=== PATIENT | female | born 1955 | race Caucasian/White ===

== ENCOUNTER 2017-07-27 07:27 | Day surgery (SDC) | payer BC ==
[2017-07-24 15:24] VITALS: BMI 33.3
[~2017-07-27 07:27] MED LIST: LACTATED RINGERS 1,000 ML IV SCH; LIDOCAINE 1% 20 ML VIAL (10MG/ML) FOR IV START INTRADERMA PRN; MIDAZOLAM 2 MG/2 ML VIAL IV PRN
[2017-07-27 08:25] VITALS: RESP 16; TEMP 98.7
[2017-07-27] MEDS ORDERED: PROPOFOL 10 MG/ML 20 ML VIAL IV ONE (09:21)
--- NOTE | 2017-07-27 09:41 | P.PCN ---
Date of Procedure: 07/27/17 Procedure(s) Performed: BRIEF HISTORY: Patient is a 62-year-old pleasant white female, scheduled for an elective colonoscopy as a part of screening for colorectal neoplasia. She does have family history of colon cancer diagnosed in her brother at age 70. PROCEDURE PERFORMED: Colonoscopy with snare polypectomy. PREOPERATIVE DIAGNOSIS: Screening for colon cancer/family history of colon cancer. IV sedation per Anesthesia. PROCEDURE: After informed consent was obtained, the patient, was brought into the endoscopy unit. IV sedation was administered by Anesthesia under continuous monitoring. Digital rectal examination was normal. Initially the Olympus CF- 160 flexible video colonoscope was then inserted in the rectum, gradually advanced into the cecum without any difficulty. Careful examination was performed as the scope was gradually being withdrawn. Ileocecal valve and the appendiceal orifice were visualized and appeared normal. Prep was excellent. In the base of the cecum there was a 5 mm sessile polyp removed by snare polypectomy. Mucosa of the cecum, ascending colon, transverse colon, was normal. In the descending colon there was another 5 mm sessile polyp removed by snare polypectomy. The rest of the descending colon, sigmoid colon, and rectum appeared normal. Retroflexion was performed in the rectum and no lesions were seen. The patient tolerated the procedure well. IMPRESSION: 5 m sessile cecal polyp status post polypectomy 5 mm sessile descending colon polyp status post polypectomy RECOMMENDATIONS: Findings of this examination were discussed with the patient as well as a family. She was advised to follow with the biopsy results. If the biopsy shows a tubular adenoma she can have a repeat colonoscopy in 5 years.
[2017-07-27 10:04] VITALS: BP 99/52; PULSE 64
== END 2017-07-27 10:35 | disposition home or self-care (01) ==
LOC: ORWHC2ENDO 07:27
PROVIDERS: ATTEND Internal Medicine Gastroenterology
DX: Z12.11 Encounter for screening for malignant neoplasm of colon (principal); D12.0 Benign neoplasm of cecum; D12.4 Benign neoplasm of descending colon; Z80.0 Family history of malignant neoplasm of digestive organs; I10 Essential (primary) hypertension; E78.5 Hyperlipidemia, unspecified; K21.9 Gastro-esophageal reflux disease without esophagitis; Z79.899 Other long term (current) drug therapy
CPT/HCPCS: 88305; 45385; J2704

== ENCOUNTER 2017-08-28 08:07 | Emergency (ER) | payer BC, OTHER ==
[2017-08-28 08:15] VITALS: BP 91/54; PULSE 79; RESP 18; TEMP 97
--- NOTE | 2017-08-28 08:45 | ED ---
General Adult HPI - General Chief complaint: Skin/Abscess/Foreign Body Stated complaint: [facility]-Ear plug in ear Time Seen by Provider: 08/28/17 08:34 Source: patient, RN notes reviewed Mode of arrival: ambulatory Limitations: no limitations - History of Present Illness Initial comments: Patient 62-year-old female presented to the emergency room today with chief complaint foreign body to left ear. She does have ear plugs that she uses for work. She went to take the ear plugged out and part remained in the ear canal. Patient was unable to remove it. She denies any other complaints or symptoms. - Related Data Home Medications Medication Instructions Recorded Confirmed Atorvastatin [Lipitor] 20 mg PO HS 07/24/17 08/28/17 Diclofenac 0.1% Ophth Soln 1 drops LEFT EYE HS PRN 07/24/17 08/28/17 [Voltaren 0.1% Ophth Soln] FLUoxetine HCL [PROzac] 20 mg PO HS 07/24/17 08/28/17 Gabapentin [Neurontin] 300 mg PO TID 07/24/17 08/28/17 Lisinopril [Zestril] 10 mg PO DAILY 07/24/17 08/28/17 Multivitamins, Thera [Multivitamin 1 tab PO DAILY 07/24/17 08/28/17 (formulary)] Ranitidine HCl 150 mg PO BID 07/24/17 08/28/17 Ferrous Sulfate [Feosol] 325 mg PO DAILY 08/28/17 08/28/17 Allergies Allergy/AdvReac Type Severity Reaction Status Date / Time No Known Allergies Allergy Verified 08/28/17 08:36 Review of Systems ROS Statement: Those systems with pertinent positive or pertinent negative responses have been documented in the HPI. ROS Other: All systems not noted in ROS Statement are negative. Past Medical History Past Medical History: Eye Disorder, GERD/Reflux, Hyperlipidemia, Hypertension Additional Past Medical History / Comment(s): [place] GLAUCOMA History of Any Multi-Drug Resistant Organisms: None Reported Past Surgical History: Hysterectomy Additional Past Surgical History / Comment(s): COLONOSCOPY Past Anesthesia/Blood Transfusion Reactions: No Reported Reaction Past Psychological History: Anxiety, Depression Smoking Status: Never smoker Past Alcohol Use History: None Reported Past Drug Use History: None Reported - Past Family History Mother Family Medical History: Cancer Father Family Medical History: Cancer Brother(s) Family Medical History: Cancer Additional Family Medical History / Comment(s): BROTHER #1-COLON. 2 BROTHERS WITH SKIN CANCER General Exam - General Exam Comments Initial Comments: General: The patient is awake and alert, in no distress, and does not appear acutely ill. Eye: round and reactive to light, extra-ocular movements are intact. No nystagmus. There is normal conjunctiva bilaterally. No signs of icterus. Ears, nose, mouth and throat: There are moist mucous membranes and no oral lesions. Bright green rubber earplug in the left ear canal was visualized and removed. Neck: The neck is supple . Neurological: A&O x 3. CN II-XII intact, There are no obvious motor or sensory deficits. Coordination appears grossly intact. Speech is normal. Skin: Skin is warm and dry and no rashes or lesions are noted. Psychiatric: Cooperative, appropriate mood & affect, normal judgment. Limitations: no limitations Course Vital Signs 08/28/17 08:12 Temperature 97 F L Pulse Rate 79 Respiratory 18 Rate Blood Pressure 91/54 O2 Sat by Pulse 96 Oximetry Procedures - Procedures Initial comment: alligator forcep was used to remove foreign body from left ear. No complications. Disposition Clinical Impression: Foreign body in ear Disposition: HOME SELF-CARE Condition: Good Is patient prescribed a controlled substance at d/c from ED?: No Referrals: Toribio Lr MD [Primary Care Provider] - 1-2 days Time of Disposition: 08:44
== END 2017-08-28 08:50 | disposition home or self-care (01) ==
LOC: EC 08:07
DX: T16.2XXA Foreign body in left ear, initial encounter (principal); K21.9 Gastro-esophageal reflux disease without esophagitis; E78.5 Hyperlipidemia, unspecified; I10 Essential (primary) hypertension; F41.9 Anxiety disorder, unspecified; F32.9 Major depressive disorder, single episode, unspecified; Z79.899 Other long term (current) drug therapy; Y92.69 Other specified industrial and construction area as the place of occurrence of the external cause; Y99.0 Civilian activity done for income or pay
CPT/HCPCS: 69200; 99282

== ENCOUNTER → 2017-12-28 | Outpatient (CLI) | payer BC ==
--- NOTE | 2017-12-29 13:38 | US ---
EXAMINATION TYPE: US kidneys/renal and bladder DATE OF EXAM: 12/28/2017 COMPARISON: NONE CLINICAL HISTORY: CKD N18.3. CKD stage III EXAM MEASUREMENTS: Right Kidney: 9.1 x 4.2 x 4.5 cm Left Kidney: 10.4 x 5.3 x 5.6 cm Technical limitations due to large amount of overlying bowel content Right Kidney: lower pole obscured by overlying bowel . Cortical medullary differentiation is poor. Left Kidney: mild hydronephrosis. Cortical medullary differentiation is poor. Bladder: appears wnl Bilateral Jets seen: yes There is no evidence for hydronephrosis at this point in time on the right. No nephrolithiasis is se en. No masses are identified. The urinary bladder is anechoic. Bilateral ureteral jets are seen. IMPRESSION: Mild left-sided hydronephrosis. CT urogram could be performed to evaluate for source of obstruction. Sonographic findings of mild medical renal disease.
== END | disposition home or self-care (01) ==
LOC: RADUSWWP 16:05
PROVIDERS: ATTEND Internal Medicine Nephrology
DX: N13.30 Unspecified hydronephrosis (principal); N18.3 Chronic kidney disease, stage 3 (moderate)
CPT/HCPCS: 76770

== ENCOUNTER → 2018-08-26 | Outpatient (CLI) | payer BC ==
--- NOTE | 2018-08-27 08:46 | XR ---
EXAMINATION TYPE: XR chest 2V DATE OF EXAM: 08/26/2018 COMPARISON: 05/31/2008 TECHNIQUE: PA and lateral views submitted. HISTORY: Chest pain FINDINGS: The lungs are clear and there is no pneumothorax, pleural effusion, or focal pneumonia. Hypertrophi c and degenerative changes spine. Somewhat irregular density are most likely is associated with the a nterior margin the first rib. Arthropathy of the shoulders. IMPRESSION: 1. No acute process. Somewhat irregular density right upper lobe likely related to the anterior ary n the first rib rather than pulmonary nodule. Apical lordotic view recommended for confirmation.
== END ==
LOC: RADXRMAIN 16:00
PROVIDERS: ATTEND Physician Assistant
DX: R91.8 Other nonspecific abnormal finding of lung field (principal)
CPT/HCPCS: 71046

== ENCOUNTER → 2018-08-28 | Outpatient (CLI) | payer BC ==
--- NOTE | 2018-08-29 08:29 | XR ---
EXAMINATION TYPE: XR chest 1V DATE OF EXAM: 08/28/2018 COMPARISON: 08/26/2018 HISTORY: Abnormal x-ray TECHNIQUE: Single frontal view of the chest is obtained. FINDINGS: There is no focal air space opacity, pleural effusion, or pneumothorax seen. The cardiac silhouette size is within normal limits. The osseous structures are intact. Density in the right ap ex is most compatible with the anterior margin of the right first rib IMPRESSION: No acute process.
== END | disposition home or self-care (01) ==
LOC: RADXRMAIN 16:31
PROVIDERS: ATTEND Family Medicine
DX: R91.1 Solitary pulmonary nodule (principal)
CPT/HCPCS: 71045

== ENCOUNTER → 2019-01-14 | Outpatient (CLI) | payer BC ==
--- NOTE | 2019-01-16 11:00 | MM ---
Reason for exam: screening (asymptomatic). Last mammogram was performed 1 year and 2 months ago. History: Patient is postmenopausal. Physical Findings: A clinical breast exam by your physician is recommended on an annual basis and results should be correlated with mammographic findings. MG Screening Mammo w CAD Bilateral CC and MLO view(s) were taken. XCCL view(s) were taken of the right breast. Prior study comparison: November 19, 2017, mammogram. May 25, 2016, mammogram. The breast tissue is heterogeneously dense. This may lower the sensitivity of mammography. No significant changes when compared with prior studies. ASSESSMENT: Benign, BI-RAD 2 RECOMMENDATION: Routine screening mammogram of both breasts in 1 year.
== END | disposition home or self-care (01) ==
LOC: RADMAMWWP 14:42
PROVIDERS: ATTEND Family Medicine
DX: Z12.31 Encounter for screening mammogram for malignant neoplasm of breast (principal)
CPT/HCPCS: 77067

== ENCOUNTER → 2019-01-16 | Outpatient (CLI) | payer BC ==
--- NOTE | 2019-01-17 08:00 | US ---
EXAMINATION TYPE: US renals and bladder DATE OF EXAM: 01/16/2019 COMPARISON: US 2018 CLINICAL HISTORY: Chronic kidney disease stage 3 N18.3. Chronic kidney disease Stage 3. EXAM MEASUREMENTS: Right Kidney: 8.8 x 4.9 x 3.9 cm Left Kidney: 10.5 x 5.6 x 5.3 cm Patient gassy. Right Kidney: There appears to be hydronephrosis Left Kidney: There appears to be hydronephrosis Bladder: Appears anechoic. Bilateral Jets seen: Yes Some increased cortical echogenicity is thought present bilaterally. Suboptimal study with fullness o f bilateral renal pelvises more prominent on the left. Similar appearance is felt present on prior st udy. IMPRESSION: Suboptimal study similar to prior, Persistent fairly moderate left greater than right monie ateral hydronephrosis is thought present. Consider further workup with functional study such as nucle ar medicine exam or contrast-enhanced CT.
== END | disposition home or self-care (01) ==
LOC: RADUSMAIN 17:41
PROVIDERS: ATTEND Internal Medicine Nephrology
DX: N13.30 Unspecified hydronephrosis (principal); N18.3 Chronic kidney disease, stage 3 (moderate)
CPT/HCPCS: 76770

== ENCOUNTER → 2019-02-12 | Outpatient (CLI) | payer BC ==
--- NOTE | 2019-02-12 09:24 | CT ---
EXAMINATION TYPE: CT abdomen pelvis wo con DATE OF EXAM: 02/12/2019 HISTORY: Unspecified Hydronephrosis per order. Recent abnormal ultrasound. CT DLP: 755.2 mGycm. Automated Exposure Control for Dose Reduction was Utilized. TECHNIQUE: CT scan of the abdomen and pelvis is performed without oral or IV contrast. COMPARISON: Renal ultrasound January 16, 2019 FINDINGS: Within the limitations of a non-contrast study, the following observations are made. LUNG BASES: No significant abnormality is appreciated. LIVER/GB: No significant abnormality is appreciated. PANCREAS: No significant abnormality is seen. SPLEEN: No significant abnormality is seen. ADRENALS: No significant abnormality is seen. KIDNEYS: Corresponding to ultrasound there are central cystic lesions in both kidneys which are large r in the left kidney versus right kidney. There is no hydroureter bilaterally. Right kidney shows no significant calyceal dilatation. Right kidney findings consistent with parapelvic cysts. Left kidney appears to show extension into the calyces consistent with moderate hydronephrosis. There is abrupt c hange in caliber at UPJ suggesting stricture or stenosis at this level. Renal sizes are symmetric. Th ere is mild symmetric cortical thinning bilaterally. No renal calculi are identified bilaterally. Hiram dder is poorly distended without intraluminal calculi. BOWEL: No significant abnormality is seen. GENITAL ORGANS: Uterus is surgically absent or less likely markedly atrophic. Scattered pelvic phlebo liths are seen. LYMPH NODES: No greater than 1cm abdominal or pelvic lymph nodes are appreciated. OSSEOUS STRUCTURES: Grade 1 anterolisthesis L4 on L5. Multilevel facet arthropathy lower lumbar spine . Fairly moderate multilevel anterior and lateral spurring in the thoracic spine. OTHER: No significant additional abnormality is seen. IMPRESSION: Suspected right renal parapelvic cysts mimicking hydronephrosis on ultrasound. There is h owever suspected confirmation of moderate left-sided hydronephrosis possibly on basis of underlying U PJ stricture or stenosis. A functional nuclear medicine study may be beneficial to assess if there is diminished performance of the left kidney versus right kidney.
== END | disposition home or self-care (01) ==
LOC: RADCTMAIN 08:14
PROVIDERS: ATTEND Urology
DX: N13.30 Unspecified hydronephrosis (principal)
CPT/HCPCS: 74176

== ENCOUNTER → 2019-03-04 | Outpatient (CLI) | payer BC ==
--- NOTE | 2019-03-04 18:32 | NM ---
EXAMINATION TYPE: NM renal flow DATE OF EXAM: 03/04/2019 COMPARISON: CT 02/12/2019, ultrasound 01/16/2019 HISTORY: Abnormal CT, abnormal ultrasound, chronic kidney disease Following administration of 10.19 mCi Tc99m MAG3. Immediate images post injection. FINDINGS: Left: 62.4 %. Right: 37.6 %. Max renal flow left: 2.8 minutes. Max renal flow right: 2.7 minutes. Satisfactory accumulation of radiotracer within both renal collecting systems. T 1/2 left: 9.249 minutes. T 1/2 right: 8.725 minutes. FINDINGS: There is normal excretion bilaterally. No evident hydronephrosis or obstruction. Some mild caliectasi s suspected at the upper pole the left kidney. IMPRESSION: Split functions as described. No hydronephrosis evident. Probable bilateral parapelvic cysts.
== END | disposition home or self-care (01) ==
LOC: RADNMMAIN 12:48
PROVIDERS: ATTEND Urology
DX: N13.30 Unspecified hydronephrosis (principal)
CPT/HCPCS: 78701; A9562

== ENCOUNTER → 2019-11-06 | Outpatient (CLI) | payer BC ==
--- NOTE | 2019-11-06 15:33 | CT ---
EXAMINATION TYPE: CT wrist LT wo con DATE OF EXAM: 11/06/2019 COMPARISON: None HISTORY: 64-year-old female M25.532, S520.572A, pain, fx lt wrist. TECHNIQUE: Contiguous axial scanning of the left wrist without IV contrast. Coronal and sagittal jesus nstructions performed. CT DLP: 139.1 mGycm Automated exposure control for dose reduction was used. FINDINGS: Overlying fiberglass splint. There is a multidirectional comminuted fracture of the distal radial epiphysis. Fracture extension in to the radiocarpal joint. There is a bony defect along the mid articular surface measuring up to 5 mm wide and 3 mm AP with an adjacent fracture fragment of the volar third to half of the epiphysis impa cted by 4 mm. Moderate degenerative change at the first CMC and triscaphe joints. Distal radioulnar joint appears intact. IMPRESSION: COMMINUTED, MULTIDIRECTIONAL INTRA-ARTICULAR FRACTURE OF THE DISTAL RADIAL EPIPHYSIS. THERE IS 4 MM O F IMPACTION OF THE VOLAR FRAGMENT AND RESULTANT 5 X 3 MM BONY DEFECT INVOLVING THE MID ARTICULAR SURF TEJA. MODERATE OA AT THE BASE OF THE THUMB.
== END | disposition home or self-care (01) ==
LOC: RADCTMAIN 14:31
PROVIDERS: ATTEND Orthopaedic Surgery
DX: S52.572A Other intraarticular fracture of lower end of left radius, initial encounter for closed fracture (principal)

== ENCOUNTER → 2020-04-05 | Outpatient (CLI) | payer BC ==
--- NOTE | 2020-04-05 16:39 | BD ---
EXAMINATION TYPE: Axial Bone Density DATE OF EXAM: 04/05/2020 COMPARISON: NONE CLINICAL HISTORY: 65-year-old female postmenopausal screening Height: 63 Weight: 191.5 FRAX RISK QUESTIONS: Alcohol (3 or more units per day): no Family History (Parent hip fracture): no Glucocorticoids (More than 3mos): no (Ex: prednisone, prednisolone, methylprednisolone, dexamethasone, and hydrocortisone). History of Fracture in Adulthood: yes Secondary Osteoporosis: 1. Type 1 Diabetes: no 2. Hyperthyroidism: no 3. Menopause before 45: yes 4. Malnutrition: no 5. Chronic liver disease: no Rheumatoid Arthritis: no Current Tobacco Use: no RISK FACTORS HISTORY OF: History of Wrist Fracture: left [id number]: Family History of Osteoporosis: no Active: yes Diet low in dairy products/other sources of calcium: yes Postmenopausal woman: around age 44 Lost more than 2 inches in height since high school: no MEDICATIONS: Prozac, gabapentin Additional History: EXAM MEASUREMENTS: Bone mineral densitometry was performed using the [employer] System. Bone mineral density as measured about the Lumbar spine is: ----- L1-L4(G/cm2): 1.015 T Score Values are as follows: ----- L2: -2.2 ----- L3: -1.5 ----- L4: -0.7 ----- L1-L4: -1.4 Bone mineral density : baseline Bone mineral density about the R hip (g/cm2): 0.768 Bone mineral density about the L hip (g/cm2): 0.776 T Score values are as follows: -----R Neck: -1.9 -----L Neck: -1.- -----R Total: -1.9 -----L Total: -1.4 Bone mineral density : baseline IMPRESSION: Osteopenia (T Score between -2.5 and -1). There is slightly increased risk of fracture and the patient may be considered for treatment. Re-Screen 2-5 years. NOTE: T-SCORE=SD OF THE YOUNG ADULT MEAN.
--- NOTE | 2020-04-07 10:01 | MM ---
Reason for exam: screening (asymptomatic). Last mammogram was performed 1 year and 3 months ago. History: Patient is postmenopausal. Physical Findings: A clinical breast exam by your physician is recommended on an annual basis and results should be correlated with mammographic findings. MG Screening Mammo w CAD Bilateral CC and MLO view(s) were taken. Prior study comparison: January 14, 2019, bilateral MG screening mammo w CAD. November 19, 2017, mammogram. The breast tissue is heterogeneously dense. This may lower the sensitivity of mammography. A couple central focal asymmetries left breast are more pronounced. ASSESSMENT: Incomplete: need additional imaging evaluation, BI-RAD 0 RECOMMENDATION: Special view mammogram of the left breast. (3D) If lesion persists on supplemental views, image directed ultrasound is recommended. [facility] will attempt to contact patient to return for supplemental views and ultrasound if indicated.
== END | disposition home or self-care (01) ==
LOC: RADBDWWP 14:58
PROVIDERS: ATTEND Family Medicine
DX: Z12.31 Encounter for screening mammogram for malignant neoplasm of breast (principal); M85.80 Other specified disorders of bone density and structure, unspecified site; Z78.0 Asymptomatic menopausal state
CPT/HCPCS: 77067; 77080

== ENCOUNTER → 2020-04-08 | Outpatient (CLI) | payer BC ==
--- NOTE | 2020-04-08 09:24 | MM ---
Reason for exam: additional evaluation requested from abnormal screening. Last mammogram was performed less than 1 month ago. History: Patient is postmenopausal. Physical Findings: Nurse did not find any significant physical abnormalities on exam. MG Work Up Mamm w CAD LT Spot compression CC, spot compression MLO, and LM view(s) were taken of the left breast. Prior study comparison: April 05, 2020, bilateral MG screening mammo w CAD. January 14, 2019, bilateral MG screening mammo w CAD. The breast tissue is heterogeneously dense. This may lower the sensitivity of mammography. No distinct lesion persists on additional views. These results were verbally communicated with the patient and result sheet given to the patient on 04/08/20. ASSESSMENT: Negative, BI-RAD 1 RECOMMENDATION: Return to routine screening mammogram schedule for both breasts.
== END | disposition home or self-care (01) ==
LOC: RADMAMWWP 07:42
PROVIDERS: ATTEND Family Medicine
DX: R92.8 Other abnormal and inconclusive findings on diagnostic imaging of breast (principal)
CPT/HCPCS: 77065

== ENCOUNTER → 2020-06-24 | Outpatient (CLI) | payer BC ==
[2020-06-24 09:43] LABS: Appearance,Urine Cloudy (Clear); Bacteria,Urine Occasional /hpf; Bilirubin,Urine Negative (Negative); Blood,Urine Negative (Negative); Calcium Oxalate Crystals,Urine Many /hpf; Color,Urine Yellow; Glucose,Urine (UA) Negative (Negative); Ketones,Urine Negative (Negative); Leukocyte Esterase,Urine Large (Negative); Mucus,Urine Occasional /hpf; Nitrite,Urine Negative (Negative); Protein,Urine Trace (Negative); RBC,Urine 6 /hpf (0-5); Specific Gravity,Urine 1.027 (1.001-1.035); Squamous Epithelial Cell,Urine 5 /hpf (0-4); WBC,Urine 40 /hpf (0-5)
[2020-06-24 10:58] LABS: Basophils % (A) 1 %; Eosinophils # (A) 0.2 k/uL (0-0.7); Eosinophils % (A) 2 %; HCT 40.5 % (34.0-46.0); HGB 13.4 gm/dL (11.4-16.0); Lymphocytes # (A) 1.2 k/uL (1.0-4.8); Lymphocytes % (A) 14 %; MCH 30.1 pg (25.0-35.0); MCHC 33.1 g/dL (31.0-37.0); MCV 90.8 fL (80.0-100.0); Mean Platelet Volume 8.1; Monocytes # (A) 0.5 k/uL (0-1.0); Monocytes % (A) 5 %; Neutrophils # (A) 6.4 k/uL (1.3-7.7); Neutrophils % (A) 76 %; Platelet Count 240 k/uL (150-450); RBC 4.46 m/uL (3.80-5.40); RDW 13.2 % (11.5-15.5); WBC 8.4 k/uL (3.8-10.6)
[2020-06-24 11:10] LABS: Partial Thromboplastin Time 23.1 sec (22.0-30.0); Prothrombin Time 10.3 sec (9.0-12.0)
[2020-06-24 11:21] LABS: Calcium 9.4 mg/dL (8.4-10.2); Potassium 4.3 mmol/L (3.5-5.1)
--- NOTE | 2020-06-24 14:02 | XR ---
EXAMINATION TYPE: XR chest 2V DATE OF EXAM: 06/24/2020 COMPARISON: Chest x-ray 08/28/2018 HISTORY: Presurgical TECHNIQUE: Frontal and lateral views of the chest are obtained. FINDINGS: There is no focal air space opacity, pleural effusion, or pneumothorax seen. The cardiac silhouette size is within normal limits. Right hemidiaphragm remains elevated. The osseous structure s are intact. IMPRESSION: No acute cardiopulmonary process.
== END | disposition home or self-care (01) ==
LOC: LABPAT 08:34
PROVIDERS: ATTEND Orthopaedic Surgery Orthopaedic Surgery of the Spine
DX: Z01.812 Encounter for preprocedural laboratory examination (principal); M43.10 Spondylolisthesis, site unspecified
CPT/HCPCS: 36415; 71046; 80048; 81001; 85025; 85610; 85730; 87070; 93005

== ENCOUNTER 2020-06-30 06:45 | Inpatient (IN) | payer BC ==
[2020-06-24 15:03] VITALS: BMI 31.8
[~2020-06-30 06:45] MED LIST changes: +DEXAMETHASONE SOD PHOSPHATE 4 MG/ML 1 ML VIAL IV ONE; +LIDOCAINE 1% (10MG/ML) FOR IV START INTRADERMA PRN; -LIDOCAINE 1% 20 ML VIAL (10MG/ML) FOR IV START INTRADERMA PRN; -MIDAZOLAM 2 MG/2 ML VIAL IV PRN; +ceFAZolin 1,000 MG in SODIUM CHLORIDE 0.9% IRRIGATIO 1,000 ML IRRIGATION PRN
[2020-06-30] MEDS: ONDANSETRON 4 MG/2 ML VIAL IVP ONE ×2 (07:45→11:40)
[2020-06-30] MEDS ORDERED: GLYCOPYRROLATE 0.2 MG/ML 2 ML VIAL ONE (08:06)
[2020-06-30] MEDS ORDERED: SUCCINYLCHOLINE CHLORIDE 100 MG/5 ML SYR IV ONE (08:06)
[2020-06-30] MEDS ORDERED: ROCURONIUM 10 MG/ML (5 ML VIAL) IV ONE (08:06)
[2020-06-30] MEDS ORDERED: MIDAZOLAM 2 MG/2 ML VIAL ONE (08:06)
[2020-06-30] MEDS ORDERED: PROPOFOL 10 MG/ML 20 ML VIAL IV ONE (08:06)
[2020-06-30] MEDS ORDERED: LIDOCAINE 1% INJ 10MG/ML (20 ML MDV) ONE (08:06)
[2020-06-30] MEDS ORDERED: fentaNYL (PF) 50 MCG/ML 2 ML AMP ONE (08:06)
[2020-06-30] MEDS ORDERED: NEOSTIGMINE 1 MG/ML 10 ML VIAL ONE (08:06)
[2020-06-30] MEDS ORDERED: ceFAZolin 1,000 MG in SODIUM CHLORIDE 0.9% 1,000 ML IRRIGATION ONE (08:34)
[2020-06-30] MEDS ORDERED: BUPIVACAINE (PF) 0.25% 30 ML VIAL SQ ONE ×2 (08:46→08:47)
[2020-06-30] MEDS ORDERED: LIDOCAINE 1%-EPI 1:100,000 20 ML VIAL SQ ONE ×2 (08:46→08:47)
[2020-06-30] MEDS ORDERED: GELATIN SPONGE,ABSORB (LARGE) 1 EACH SPONGE TOPICAL ONE (08:53)
[2020-06-30] MEDS ORDERED: THROMBIN (BOVINE) 5,000 UNIT VIAL TOPICAL ONE (08:53)
[2020-06-30] MEDS ORDERED: LACTATED RINGERS 1,000 ML IV ONE (10:22)
[2020-06-30] MEDS ORDERED: CYCLOBENZAPRINE 10 MG TAB PO PRN (10:59)
[2020-06-30] MEDS ORDERED: MAGNESIUM HYDROXIDE 2,400 MG/10 ML CUP PO PRN (10:59)
[2020-06-30] MEDS ORDERED: BENZOCAINE/MENTHOL LOZENG 1 EACH LOZENGE MUCOUS MEM PRN (10:59)
--- NOTE | 2020-06-30 11:06 | P.OP ---
Date of Procedure: 06/30/20 Preoperative Diagnosis: Grade 2 spondylolisthesis L4 5, severe spinal stenosis L4 5, low back pain, lower extremity radiculopathy, facet arthrosis, degenerative disc disease Postoperative Diagnosis: Grade 2 spondylolisthesis L4 5, severe spinal stenosis L4 5, low back pain, lower extremity radiculopathy, facet arthrosis, degenerative disc disease Anesthesia: GETA Pathology: none sent Condition: stable Disposition: PACU Description of Procedure: DESCRIPTION OF PROCEDURE(S): BRIEF OPERATIVE NOTE Preoperative Diagnosis: Grade 2 spondylolisthesis L4 5, severe spinal stenosis L4 5, low back pain, lower extremity radiculopathy, facet arthrosis, degenerative disc disease Postoperative Diagnosis: Grade 2 spondylolisthesis L4 5, severe spinal stenosis L4 5, low back pain, lower extremity radiculopathy, facet arthrosis, degenerative disc disease Procedure: Laminectomy and decompression L4 [address] navigation aided Minimally invasive Posterior lateral decompression and facet fusion L4 5 Minimally invasive Transforaminal lumbar interbody fusion for a 360 fusion L4 5 Discectomy for decompression L4 5 Placement of interbody graft L4 5 Use of computer navigation for fusion L4 5 Local autogenous bone grafting Aspiration of bone marrow from the vertebral body pedicle of L4 on the right Use of bone graft extenders Surgeon: Dr. Anderson Overlay Plastician: Tonio GROVER who is present throughout the entire the case persistence during positioning, dissection, exposure, visualization, and all crucial elements of the case as well as closure. Anesthesia: General anesthesia per Estimated blood loss: Approximately 150 mL Complications: None apparent Components implanted: K2M minimally invasive [place] pedicle screw system withscrews measuring 6.5 mm in diameter to rods one [place] interbody cage with 10 mL of osteo amp bio4 bone graft substitute and 30 mL of the BX bone fibers to supplement the local autogenous bone graft and bone marrow aspirate Disposition: To recovery room in good stable condition. OPERATIVE INDICATIONS The patient has had severe issues at their lower extremity in her lower back over the past several years with significant worsening over the past several months. Over the past few months the patient had pain at her back and her right lower extremity. The patient is having severe radicular symptoms at her right lower extremity with weakness. The patient is having significant pain in her back. They are unable to obtain any comfort. The patient was found to have a dynamic spondylolisthesis at L4 5 with bilateral foraminal stenosis and central stenosis. We did aggressive conservative treatment with medications therapy and interventional pain management however she was not having any relief. The patient also showed evidence of a listhesis with some dynamic i nstability. The patient has been through conservative treatment. We discussed various treatment options including surgery, and the patient wishes to proceed with surgery We discussed the risk, patient's alternatives and benefits of surgery including but not limited to, risk of bleeding risk of infection, risk of need for further surgery, risk of decreased, loss of motion, muscle function, malunion nonunion, hardware failure, nerve damage, paralysis, heart attack, blindness and . They understood issues with the current pandemic and the possibility of exposure. OPERATIVE SUMMARY After discussing all the risks, patient alternatives and benefits at length, the patient elected to proceed with surgical intervention, signed informed consent, and presented for their procedure. The patient was seen and examined in the preoperative holding area and the surgical site was marked. The patient was given antibiotics and brought to the operating room. The patient was sedated and intubated by anesthesia in standard fashion. The patient was positioned on to the operating room table in a prone position on the appropriate frame which was well-padded and well molded. We were careful to pad any bony prominences and pressure points. We were careful to maintain the patient's cervical spine and good neutral alignment and position throughout. The patient was prepped and draped in a normal standard fashion. An appropriate timeout and keystone protocol performed. We were able to proceed with the surgery. The local wound area was infiltrated with local anesthetic. Over the right iliac crest I was able to make small stab incisions and establish a guidepin screw fixation to the iliac crest 2. I was able place the computer referencing device over the guidepins to establish an appropriate reference point for the Ziem CT navigation. We then were able to place patient in an appropriate drape and do a navigation spin for visualization and 3-D reconstruction of the lumbar spine. I was able utilize C-arm guidance and navigation to establish appropriate position over the pedicles bilaterally at the appropriate levels at L4 5 . With the appropriate levels confirmed was able to make small stab incisions over the appropriate pedicle sites bilaterally. Utilizing the computer navigation device I was able to establish bony landmarks at the right iliac crest for a bony reference point for the navigation device. I was able to establish a Jamshidi needle over the lateral aspect of the pedicle and advanced the trocar into the pedicle being careful not to breech superiorly inferiorly medially or laterally using computer navigation device. Position was confirmed regularly with AP and lateral images on C-arm and with the computer navigation device at the appropriate levels bilaterally. I was able to establish the trocar into the pedicle appropriately into the posterior aspect of the vertebral body bilaterally at the appropriate levels. This was done at each of the pedicle positions and each of the vertebrae. At the superior vertebrae I was able to take approximately 25 mL of bone aspiration from L4 pedicle for use later in the case to supplement the allograft and autograft bone. I was able place the guidewire into the trocar and into the vertebral body appropriately under C-arm guidance. Dissection was taken down over the wire to the appropriate starting position for the screw placed. The appropriate length screw was chosen, threaded over the guidewire and screwed appropriately into the pedicle and vertebral body under C-arm guidance in excellent alignment and position with good bony purchase. This is done at each of the screw sites at the appropriate levels. Of L4 and L5. With the screws intact I extended the incision to connect the screw hole sites on the most symptomatic side on the right. I dissected down to establish access over the pars and lamina to the base of the spinous process. I was able to expose the facet joint. The capsule the facet was taken down and showed some facet arthrosis at the joint. I was able to use a combination of curettes and Kerrison rongeurs and a high-speed drill to take down the facet joint and do a facetectomy. I was able get excellent foraminal decompression and central decompression with undermining across midline to perform a laminectomy centrally and contralaterally. As able get good central decompression. The ligamentum flavum was taken down to further decompress centrally and at bilateral neural foramen. I was able to expose the disc space and visualize the traversing nerve root. Note was made of some disc protrusion and disc herniation that was abutting the traversing nerve root at the level causing further compression of the nerve root. I was able to establish a annulotomy at the appropriate level protecting soft tissue and neural structures. Note was made of some disc desiccation at the disc. We also noted the obvious listhesis at that level of L4 5. I performed a complete discectomy with accommodation of curettes and rasps and scrapers. I was able get good endplate preparation at the disc space. I sized for the appropriate size interbody spacer protecting the soft tissue and neural structures. The wound was copiously irrigated and suctioned dry. There is no evidence of any dural tear or leak. I was able to pack the disc space with local autogenous bone graft as well as a small amount of bone graft which was also placed into the interbody cage itself. Protecting the soft tissue structures and neural structures I was able place the interbody cage in good alignment and good position with good fit and fill at the interbody space. Position was confirmed with C-arm guidance. Good hemostasis maintained. There is no evidence of any dural tear or leak. The wound was irrigated and suctioned dry. With the hardware intact, intraoperative C-arm imaging was again taken which showed good alignment and position of the hardware at the appropriate levels with some reduction of the listhesis at L4 5. We were then able to measure, contour and place the rods and appropriate hardware bilaterally. I was able to place capcrews, tighten them down, and torque them with the torque screwdriver appropriately this aided the reduction of the listhesis L4 5. With this intact I was able to place the local autogenous bone graft with additional bone graft e nhancer as necessary into the posterior lateral gutters over the decorticated transverse processes and facet joints on the contralateral side. The remainder of the bone graft was placed over the facet joint on the contralateral side after taking down the facet joint capsule. With the bone graft intact, a stable construct, and good decompression at the appropriate levels, we were able to proceed with closure. Good hemostasis was maintained. There is no evidence of dural tear or leak. The fascia was closed for a watertight closure. he subcuticular tissue was closed with absorbable suture. The wound was cleaned and dried and dressed with the appropriate dressing. The drapes were broken down. The patient was gently rolled back onto their hospital bed being careful to maintain their cervical spine and good neutral alignment and position. They were woken up by anesthesia, extubated, and brought to the recovery room in good stable condition. The patient will be admitted to the hospital for appropriate postoperative care, medical management and monitoring. We will continue to follow them closely about the postoperative course.
[2020-06-30] MEDS: HYDROmorphone 0.5 MG/0.5 ML SYRINGE IVP ONE ×4 (11:40→13:05)
--- NOTE | 2020-06-30 11:52 | FL ---
EXAMINATION TYPE: FL guidance operating room DATE OF EXAM: 06/30/2020 HISTORY: Fluoroscopy time 12.33 seconds of fluoroscopy provided. IMPRESSION: 1. Fluoroscopy time.
--- NOTE | 2020-06-30 11:52 | XR ---
EXAMINATION TYPE: XR lumbar spine 2 or 3V DATE OF EXAM: 06/30/2020 COMPARISON: NONE HISTORY: Intraoperative TECHNIQUE: 2 views submitted FINDINGS: Exam limited by intraoperative technique and resolution. Postsurgical changes are seen and appear in near-anatomic alignment. Cannot exclude an anterolisthesis on the lateral view due to limit ed visualization of the surgical region. IMPRESSION: Limited images demonstrating intraoperative postsurgical change
[2020-06-30] MEDS: SODIUM CHLORIDE 0.9% 1,000 ML IV SCH (15:30)
[2020-06-30] MEDS: HYDROcodone/APAP 10-325MG 1 EACH TAB PO PRN (15:52)
[2020-06-30] MEDS: HYDROmorphone 0.5 MG/0.5 ML SYRINGE IVP PRN (17:43)
[2020-06-30] MEDS: HYDROmorphone 1 MG/ML 1 ML SYRINGE IVP PRN (21:35)
--- NOTE | 2020-06-30 22:14 | P.CON ---
Consult Note - . Consult date: 06/30/20 Assessment/Plan:: Medical consult Dr. Anderson performed a laminectomy and decompression of L4 and L5. See operative notes for detailed description of surgical procedure. Vital signs and diagnostic labs within normal limits Constitutional patient alert and oriented and age-appropriate HEENT normocephalic atraumatic Neck-supple, normal range of motion thyroid is not enlarged cardiac heart is regular S1 and S2, no murmurs rubs or gallops noted lungs normal expansion clear throughout lung monsalve with inspiration and expiration abdomen normal inspection, bowel sounds in all 4 quadrants, nontender to all 4 quadrants extremities patient able to move extremities with full range of motion psychological patient age appropriate mental status intact Assessment Laminectomy and decompression of L4 and L5 hypertension Gerd/reflux anemia osteoarthritis mixed anxiety and depression history of kidney disease history of hysterectomy full code Plan continue home medications continue medical management continue to monitor diagnostics and laboratory values further recommendations to come based on patient's clinical condition
[2020-07-01] MEDS: HYDROmorphone 1 MG/ML 1 ML SYRINGE IVP PRN (02:33)
[2020-07-01] MEDS: HYDROcodone/APAP 10-325MG 1 EACH TAB PO PRN ×3 (05:12→20:29)
[2020-07-01] MEDS: SODIUM CHLORIDE 0.9% 1,000 ML IV SCH ×2 (08:49→18:02)
[2020-07-01] MEDS: FLUoxetine HCL 20 MG CAP PO SCH (08:50)
[2020-07-01] MEDS: MULTIVITAMINS, THERA 1 EACH TAB PO SCH (08:50)
[2020-07-01] MEDS: HYDROmorphone 0.5 MG/0.5 ML SYRINGE IVP PRN (08:54)
[2020-07-01] MEDS ORDERED: SENNOSIDES-DOCUSATE SODIUM 1 EACH TAB PO SCH (09:00)
--- NOTE | 2020-07-01 09:11 | P.CON ---
Consult Note - . Consult date: 07/01/20 Assessment/Plan:: Medical consult Dr. Anderson performed a laminectomy and decompression of L4 and L5. See operative notes for detailed description of surgical procedure. Vital signs and diagnostic labs within normal limits Constitutional patient alert and oriented and age-appropriate HEENT normocephalic atraumatic Neck-supple, normal range of motion thyroid is not enlarged cardiac heart is regular S1 and S2, no murmurs rubs or gallops noted lungs normal expansion clear throughout lung monsalve with inspiration and expiration abdomen normal inspection, bowel sounds in all 4 quadrants, nontender to all 4 quadrants extremities patient able to move extremities with full range of motion psychological patient age appropriate mental status intact Assessment Laminectomy and decompression of L4 and L5 hypertension Gerd/reflux anemia osteoarthritis mixed anxiety and depression history of kidney disease history of hysterectomy full code Plan continue home medications continue medical management continue to monitor diagnostics and laboratory values further recommendations to come based on patient's clinical condition
[2020-07-01 09:40] LABS: Basophils # (A) 0.03 X 10*3/uL (0.00-0.10); Basophils % (A) 0.2 %; Eosinophils # (A) 0.02 X 10*3/uL (0.04-0.35); Eosinophils % (A) 0.2 %; HCT 37.7 % (37.2-46.3); HGB 11.6 g/dL (12.0-15.0); Lymphocytes # (A) 0.81 X 10*3/uL (0.90-5.00); Lymphocytes % (A) 6.2 %; MCH 29.2 pg (27.0-32.0); MCHC 30.8 g/dL (32.0-37.0); Mean Platelet Volume 11.2 fL (9.5-12.2); Monocytes # (A) 0.99 X 10*3/uL (0.20-1.00); Monocytes % (A) 7.6 %; Neutrophils # (A) 11.06 X 10*3/uL (1.80-7.70); Neutrophils % (A) 85.3 %; Platelet Count 203 X 10*3/uL (140-440); RBC 3.97 X 10*6/uL (4.10-5.20); RDW 13.2 % (11.5-14.5); WBC 12.97 X 10*3/uL (4.50-10.00)
--- NOTE | 2020-07-01 10:37 | P.PN ---
Progress Note - Text Progress Note Date: 07/01/20 Postoperative day #1 Patient is seen and examined today at bedside. The patient has some pain around the surgical site as expected. She is sitting up in a chair. She feels her right leg is doing very well. She has some soreness on the left side but is controlled with medication. Pain is being controlled with medication. Physical Exam Afebrile with stable vital signs Abdomen is soft nontender. Chest has good excursion deep and space expiration The incision site is clean dry and intact. No erythema there is no purulence. The dressings are intact without any significant bleeding. There is some swelling and bruising as expected. Extremities have not had neurologic change from prior to surgery. She has sustained dorsal to plantar flexion and EHL intact Calves and thighs were soft nontender without evidence of DVT. Assessment/Plan Postoperative day #1 status post minimally invasive decompression and fusion for her spondylolisthesis with severe spinal stenosis at L4 5 Her Gallardo has been removed though she has not had voided this morning on her own. Patient is progressing as expected from the surgery. Her lower extremities have made improvement already. She is sitting up at bedside and is ready try walking with physical therapy. Hopefully she'll be comfortable with home and another one or 2 days We will continue to increase the patient's mobilization with therapy. We will continue pain control with oral or IV medications. We'll continue to follow patient closely.
[2020-07-01 21:08] LABS: African American GFR (CKD) 61.4 (60.0-200.0); Anion Gap 6.4 mmol/L (4.00-12.00); Calcium 8.7 mg/dL (8.7-10.3); Carbon Dioxide 29.6 mmol/L (21.6-31.8); Potassium 4.5 mmol/L (3.5-5.5)
[2020-07-01] MEDS: GABAPENTIN 300 MG CAP PO PRN (23:28)
[2020-07-02] MEDS: SODIUM CHLORIDE 0.9% 1,000 ML IV SCH ×2 (03:59→17:23)
[2020-07-02] MEDS: HYDROcodone/APAP 10-325MG 1 EACH TAB PO PRN ×2 (05:12→17:23)
[2020-07-02] MEDS ORDERED: SENNOSIDES-DOCUSATE SODIUM 1 EACH TAB PO PRN (08:35)
--- NOTE | 2020-07-02 08:35 | P.PN ---
Progress Note - Text Progress Note Date: 07/02/20 Orthopedic Spine: History of present illness: Patient is a pleasant 65-year-old female who is seen and examined at the bedside following posterior lateral decompression and fusion performed Sunday. Patient states they are doing well postsurgically. She continues to improve daily. She has been working with physical therapy to increase her mobility and ambulation. Not walking independently. Her lower extremity leg pain has had significant improvement postoperatively. She is not currently experiencing any right lower extremity radiculopathy. She does occasionally get some pain over the left anterior thigh. She has soreness at her lumbar spine that her back pain is adequately controlled. She continues to receive IV Dilaudid and oral [employer] for pain control. She is not had a bowel movement but is passing gas. She denies any abdominal pain. Currently does not complain of nausea, vomiting, fever, or chills. Patient states pain has been adequately controlled. Patient is eating and voiding freely without difficulty. Physical Exam Lumbar Fusion: Status post surgical day number 2 Patient is awake, alert, and oriented 3 Vital signs stable Good chest excursion with deep inspiration and expiration Abdomen soft nontender Dorsiflexion, plantarflexion, and extensor hallucis longus positive sustained bilaterally No signs or symptoms of DVT; no calf pain; pneumatic cuffs intact bilateral lower extremities Dressings are clean, dry, and intact; no erythema, purulence, or signs of infection Evidence of some bruising around the right lumbar surgical site Neurovascularly intact bilaterally lower extremities Assessment: Status post L4-5 minimally invasive posterior lateral decompression and fusion with transforaminal lumbar interbody fusion Low back pain Lower extremity radiculopathy L4-5 grade 2 spondylolisthesis Lumbar facet arthrosis Lumbar degenerative disc disease Hypertension Hyperlipidemia Plan: 1. Ambulate as tolerated; work with Physical Therapy to increase mobilization 2. Continue pain control with IV and oral medications; we will plan to wean the patient off of IV Dilaudid today and we'll plan to continue pain control with oral [employer]. 3. Dressing remained intact with Optifoam; patient may shower with dressings intact 4. Patient has not had a bowel movement postoperatively but states she does not regularly have bowel movements; her abdomen is soft nontender; she is passing gas; we will increase Senokot-S 1 tab twice a day to help facilitate a bowel movement 5. Medical management can continue to manage patient for patient's other medical diagnoses 6. We will continue to follow the patient closely; if the patient continues to improve, we will plan for discharge home tomorrow, 07/04/2019 7. Patient can follow-up with Tonio Orantes PA-C or Dr. Nicholas Anderson at [facility] in 2-3 weeks following discharge
[2020-07-02] MEDS: MULTIVITAMINS, THERA 1 EACH TAB PO SCH (08:52)
[2020-07-02] MEDS: GABAPENTIN 300 MG CAP PO PRN (08:52)
[2020-07-02] MEDS: FLUoxetine HCL 20 MG CAP PO SCH (08:52)
[2020-07-02] MEDS ORDERED: SODIUM CHLORIDE 0.9% 500 ML 500 ML IV ONE (17:08)
--- NOTE | 2020-07-02 17:16 | P.CON ---
Consult Note - . Consult date: 07/02/20 Assessment/Plan:: Medical consult Dr. Mcdanielformed a laminectomy and decompression of L4 and L5 Reviewed and vital signs and labsorder to 500 mL bolus due to mild hypotensionpatient denies any complaints Constitutionalpatient alert and oriented and age appropriate HEENTnormocephalic atraumatic Necksupple, normal range of motion, thyroid is not enlarged Cardiacheart is regular S1 and S2, no murmurs rubs or gallops noted Lungsnormal expansionclear throughout lung monsalve with inspiratory and expiratory Abdomennormal inspection, bowel sounds in all 4 quadrants, nontender to all 4 quadrants Extremitiespatient able to move extremities with full range of motion Psychologicalpatient age-appropriate mental status intact Assessment Laminectomy and decompression of L4 and L5 Hypertension GERD Anemia Osteoarthritis Mixed anxiety and depression History of kidney disease History of hysterectomy Full code Plan Home medications Mild hypotensionnormal saline 500 was ordered Hold blood pressure medications for systolic less than 90 or diastolic less than 60 From medical standpoint patient cleared for discharge
[2020-07-03] MEDS: HYDROcodone/APAP 10-325MG 1 EACH TAB PO PRN ×2 (03:24→08:59)
[2020-07-03] MEDS: SODIUM CHLORIDE 0.9% 1,000 ML IV SCH (06:55)
[2020-07-03 07:24] VITALS: BP 91/56; PULSE 92; RESP 20; TEMP 98.2
[2020-07-03 07:54] LABS: ALT 9 U/L (4-34); AST 24 U/L (14-36); African American GFR (CKD) >90 (>60 ml/min/1.73 sqM); Albumin 2.7 g/dL (3.5-5.0); Albumin/Globulin Ratio 1.1; Alkaline Phosphatase 85 U/L (38-126); Anion Gap 5 mmol/L; Blood Urea Nitrogen 9 mg/dL (7-17); Calcium 8.4 mg/dL (8.4-10.2); Carbon Dioxide 27 mmol/L (22-30); Chloride 108 mmol/L (98-107); Globulin 2.5 g/dL; Glucose 96 mg/dL (74-99); Non-African American GFR(CKD) 78 (>60 ml/min/1.73 sqM); Potassium 3.9 mmol/L (3.5-5.1); Sodium 140 mmol/L (137-145); Total Bilirubin 0.4 mg/dL (0.2-1.3); Total Protein 5.2 g/dL (6.3-8.2)
[2020-07-03 07:56] LABS: Basophils % (A) 0 %; Eosinophils # (A) 0.2 k/uL (0-0.7); Eosinophils % (A) 2 %; HCT 31.9 % (34.0-46.0); Lymphocytes # (A) 1.1 k/uL (1.0-4.8); Lymphocytes % (A) 13 %; MCH 29.4 pg (25.0-35.0); MCHC 32.1 g/dL (31.0-37.0); MCV 91.4 fL (80.0-100.0); Monocytes # (A) 0.4 k/uL (0-1.0); Monocytes % (A) 4 %; Neutrophils # (A) 6.8 k/uL (1.3-7.7); Neutrophils % (A) 79 %; Platelet Count 193 k/uL (150-450); RBC 3.49 m/uL (3.80-5.40); RDW 13.4 % (11.5-15.5); WBC 8.6 k/uL (3.8-10.6)
[2020-07-03 07:59] LABS: HGB 10.3 gm/dL (11.4-16.0)
--- NOTE | 2020-07-03 08:28 | XR ---
EXAMINATION TYPE: XR chest 2V DATE OF EXAM: 07/03/2020 COMPARISON: 06/24/2020 INDICATION: TECHNIQUE: Frontal and lateral views of the chest are obtained. FINDINGS: The heart size is normal. The pulmonary vasculature is normal. The lungs are clear. IMPRESSION: 1. No acute pulmonary process.
[2020-07-03] MEDS: FLUoxetine HCL 20 MG CAP PO SCH (08:57)
[2020-07-03] MEDS: MULTIVITAMINS, THERA 1 EACH TAB PO SCH (08:57)
--- NOTE | 2020-07-03 09:46 | P.DS ---
<Tonio Orantes - Last Filed: 07/03/20 09:41> Providers Expected date of discharge: 07/03/20 - Discharge Diagnosis(es) (1) Lumbar spinal stenosis Current Visit: Yes Status: Acute (2) Lumbar facet arthropathy Current Visit: Yes Status: Acute (3) Spondylolisthesis, lumbar region Current Visit: Yes Status: Acute (4) Lumbar degenerative disc disease Current Visit: Yes Status: Acute (5) Lumbar back pain with radiculopathy affecting lower extremity Current Visit: Yes Status: Acute (6) Hypertension Current Visit: Yes Status: Acute (7) Hyperlipidemia Current Visit: Yes Status: Acute Hospital Course: This is a pleasant 65-year-old female who presented with L4-5 grade 2 spondylolisthesis, severe spinal canal stenosis, lumbar facet arthrosis, lumbar degenerative disc disease, and low back pain with lower extremity radiculopathy who failed outpatient conservative therapy. She was admitted for and L4-5 minimally invasive posterior lateral decompression and fusion with transforaminal lumbar interbody fusion. The patient tolerated the procedure well and did well postoperatively. Her pain has been adequately controlled with oral medications. She's been able to increase her ambulation. She is not experiencing any lower extremity weakness bilaterally. She does occasionally get some pain over the anterior thighs but states her pain is well-controlled. She has good range of motion of bilateral lower extremities. She is eating and voiding without difficulty. She is ready for discharge home today. She has not had a bowel movement but is not experiencing any abdominal pain. Her abdomen is soft nontender. She is passing gas regularly. Condition on day of discharge stable. Patient will be discharged home. Patient was cleared preoperatively for surgery by Dr. Mcfadden. Patient currently denies any nausea, vomiting, fever, or chills. Patient may shower Optifoam dressing intact. Patient may remove Optifoam dressing in 3 days and shower without a dressing at that time. Patient should refrain from driving until at least after their first follow-up appointment in the office. Patient should avoid excessive bending, lifting, and twisting; no lifting greater than 10 p ounds. MAPS has been reviewed previously. An "Opiod Start Talking" Form has been signed and placed in the patient's chart. A prescription has been written for Craig 5 mg/325 mg 1 tablet every 4 hours as needed for pain, dispense #42. Patient may resume previous he prescribed home medications. She should discontinue Ultram as previously prescribed while she continues to take Craig. Patient's other medical diagnoses include hypertension and hyperlipidemia. Physical Exam on day of discharge: Status post surgical day number 3 Patient is awake, alert, and oriented 3 Vital signs stable Good chest excursion with deep inspiration and expiration Abdomen soft nontender Dorsiflexion, plantarflexion, and extensor hallucis longus positive sustained bilaterally No signs or symptoms of DVT; no calf pain; pneumatic cuffs intact bilateral lower extremities Dressings are clean, dry, and intact; no erythema, purulence, or signs of infection Evidence of some bruising around the lumbar surgical site; no bruising around the incision sites at the right iliac crest Neurovascularly intact bilaterally lower extremities Procedures: L4-5 minimally invasive posterior lateral decompression and fusion with transforaminal lumbar interbody fusion Patient Condition at Discharge: Stable Plan - Discharge Summary Discharge Rx Participant: Yes New Discharge Prescriptions: New HYDROcodone/APAP 5-325MG [Craig 5] 1 each PO Q4HR PRN #42 tab PRN Reason: Pain No Action Gabapentin [Neurontin] 300 mg PO BID PRN PRN Reason: Pain Multivitamins, Thera [Multivitamin (formulary)] 1 tab PO DAILY traMADol HCL [Ultram] 50 - 100 mg PO Q4-6H PRN PRN Reason: Pain FLUoxetine HCL [PROzac] 20 mg PO DAILY Nitrofurantoin Monohyd/M-Cryst [Macrobid] 1 tab PO BID Discharge Medication List Gabapentin [Neurontin] 300 mg PO BID PRN 07/24/17 [History] Multivitamins, Thera [Multivitamin (formulary)] 1 tab PO DAILY 07/24/17 [History] traMADol HCL [Ultram] 50 - 100 mg PO Q4-6H PRN 06/24/20 [History] FLUoxetine HCL [PROzac] 20 mg PO DAILY 06/28/20 [History] HYDROcodone/APAP 5-325MG [Craig 5] 1 each PO Q4HR PRN #42 tab 06/30/20 [Rx] Nitrofurantoin Monohyd/M-Cryst [Macrobid] 1 tab PO BID 06/30/20 [History] Follow up Appointment(s)/Referral(s): Pasia,E Nicholas, DO [Doctor of Osteopathic Medicine] - 2 Weeks Activity/Diet/Wound Care/Special Instructions: Keep site clean. May shower with waterproof Optifoam intact. Do not soak in a tub. If the surgical sites remain dry over the next 72 hours, patient may remove dressing and shower without a dressing at that time. May ambulate as tolerated. Avoid heavy or rigorous activity. No repetitive bending twisting or lifting. No overhead work. <Mary Anderson - Last Filed: 07/03/20 09:49> Providers Date of admission: 07/02/20 12:03 Attending physician: Mary Anderson Consults: 06/30/20 10:59 Consult Physician Routine Consulting Provider: Jay Mcfadden Consult Reason/Comments: Medical management Do you want consulting provider notified?: Yes Primary care physician: Jay Mcfadden
--- NOTE | 2020-07-03 15:22 | PN ---
PROGRESS NOTE DATE OF SERVICE: 07/03/2020 This 65-year-old woman was admitted after laminectomy, is improving significantly. No chest pain. No palpitations. No fever. PHYSICAL EXAMINATION: Alert and oriented x3. Pulse 92, blood pressure 91/56, respiration 20, temperature 98.2, pulse ox 98% on room air. HEENT: Conjunctivae normal. Oral mucosa moist. NECK: No jugular venous distention. No lymph node enlargement. CARDIOVASCULAR: S1, S2, muffled. No S3, no S4, RESPIRATORY: Diminished breath sounds at the bases. No rhonchi and no crackles. ABDOMEN: Soft, nontender. NERVOUS SYSTEM: No focal deficits. LABS: WBC 8.2, hemoglobin 10.3. Other labs are noted. COVID-19 is negative. ASSESSMENT: 1. Status post laminectomy decompression L4-5. 2. Hypertension. 3. Gastroesophageal reflux disease. 4. Anemia. 5. Degenerative joint disease. 6. Mild anxiety and depression. 7. History of chronic obstructive pulmonary disease. 8. History of kidney disease. 9. History of hysterectomy. 10.FULL CODE. RECOMMENDATIONS AND DISCUSSION: Recommend to continue current management, continue symptomatic treatment. Continue home medications. The rest of the recommendations per Orthopedic surgery. Follow up with Dr. Jay Mcfadden p.r.n. or in one week. Further recommendations to follow. MMODL / IJN: [id number] /
== END 2020-07-03 12:22 | disposition home or self-care (01) | DRG 455 ==
LOC: OR 06:45 → EDSTATUS 08:00 → 5NMEDONC 11:14 → OR 21:35 → OBSVTOIN 07-02 12:03
PROVIDERS: ADMIT Orthopaedic Surgery Orthopaedic Surgery of the Spine; ATTEND Orthopaedic Surgery Orthopaedic Surgery of the Spine
PROC: 0SG0071 Fusion of Lumbar Vertebral Joint with Autologous Tissue Substitute, Posterior Approach, Posterior Column, Open Approach (ICD-10-PCS; 2020-06-30)
PROC: 0SB20ZZ Excision of Lumbar Vertebral Disc, Open Approach (ICD-10-PCS; 2020-06-30)
PROC: 01NB0ZZ Release Lumbar Nerve, Open Approach (ICD-10-PCS; 2020-06-30)
PROC: 0SG00AJ Fusion of Lumbar Vertebral Joint with Interbody Fusion Device, Posterior Approach, Anterior Column, Open Approach (ICD-10-PCS; principal; 2020-06-30 08:00)
DX: M48.061 Spinal stenosis, lumbar region without neurogenic claudication (principal); M47.26 Other spondylosis with radiculopathy, lumbar region; M51.16 Intervertebral disc disorders with radiculopathy, lumbar region; K21.9 Gastro-esophageal reflux disease without esophagitis; I10 Essential (primary) hypertension; J44.9 Chronic obstructive pulmonary disease, unspecified; D64.9 Anemia, unspecified; Z90.710 Acquired absence of both cervix and uterus; E78.5 Hyperlipidemia, unspecified; Z20.822 Contact with and (suspected) exposure to COVID-19; F41.8 Other specified anxiety disorders
CPT/HCPCS: 71046; 72100; 80048; 80053; 85025; 86850; 86900; 86901; 87635

== ENCOUNTER → 2020-08-30 | Outpatient (CLI) | payer BC ==
--- NOTE | 2020-08-30 15:22 | XR ---
EXAMINATION TYPE: XR pelvis AP view DATE OF EXAM: 08/30/2020 COMPARISON: NONE HISTORY: Pain Postsurgical change lower lumbar spine. SI joints symmetric. Mild hypertrophic arthropathy. Hypertrop hic arthropathy of the hips correlate for femoral acetabular impingement. Calcifications in the pelvi s nonspecific but likely vascular. IMPRESSION: 1. No acute fracture.
--- NOTE | 2020-08-30 15:23 | XR ---
EXAM TYPE: LUMBAR SPINE X RAY SERIES COMPARISON: 06/30/2020 HISTORY: Pain TECHNIQUE: 4 views are submitted. FINDINGS: Alignment is anatomic. The pedicles are intact. The transverse processes are intact. There is post surgical change involving the lower lumbar spine with grade 1 anterolisthesis L4 on L5. Vacuum disc L 5-S1 pedicles intact. IMPRESSION: 1. Postsurgical change L4-5 with grade 1 anterolisthesis. 2. Vacuum disc is degenerative disc disease L5-S1.
--- NOTE | 2020-08-30 15:25 | XR ---
EXAMINATION TYPE: XR sacrum coccyx DATE OF EXAM: 08/30/2020 COMPARISON: NONE HISTORY: Pain Three views are submitted. Postsurgical change involving the lower lumbar spine. Calcifications in p tesha are nonspecific. 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 Mild hypertrophic arthropathy of the SI joints and hips. Correlate for femoral acetabular there is reduced mineralization of the S2 segment. Sacrum is intact. SI joints are symmetric. Coccyx appears to be intact. Visualized pelvic structures int act. IMPRESSION: 1. No acute fracture. Reduced mineralization and visualization of the S2 segment. Recommend CT scan o f the sacrum.
== END | disposition home or self-care (01) ==
LOC: RADXRMAIN 14:48
PROVIDERS: ATTEND Nurse Practitioner
DX: M51.37 Other intervertebral disc degeneration, lumbosacral region (principal); M43.16 Spondylolisthesis, lumbar region; R10.2 Pelvic and perineal pain
CPT/HCPCS: 72100; 72170; 72220

== ENCOUNTER 2021-11-29 10:49 | Emergency (ER) | payer MEDICARE ==
[2021-11-29 11:33] VITALS: BP 163/78; PULSE 64; RESP 20; TEMP 98.4
--- NOTE | 2021-11-29 12:10 | ED ---
General Adult HPI - General Source: patient Mode of arrival: ambulatory Limitations: no limitations <Chester Osorio - Last Filed: 11/29/21 12:10> <Franc Guzmán - Last Filed: 11/29/21 20:52> - General Chief complaint: Back Pain/Injury Stated complaint: fall,numbness in upper thigh Time Seen by Provider: 11/29/21 11:55 - History of Present Illness Initial comments: Dictation was produced using [employer] dictation software. please excuse any grammatical, word or spelling errors. Chief Complaint: 66-year-old female past medical history of lumbar spine surgery presents with back pain and leg numbness History of Present Illness: 66-year-old female she fell 3 days ago. Patient states that she bumped into a fire pit that caused her to fall landing on her left side. After the event she began having worsening back pain. She states the back pain is worse whenever she bears weight on the left lower extremity. She states that her leg becomes numb whenever she stands. Patient has history of lumbar fusion surgery performed by one of our local spine surgeons, Dr. Anderson. Patient states that when she is at rest she does not feel any sensory issues. Patient is ambulatory though with significant difficulty. Fall occurred 3 days ago. The ROS documented in this emergency department record has been reviewed and confirmed by me. Those systems with pertinent positive or negative responses have been documented in the HPI. All other systems are other negative and/or noncontributory. PHYSICAL EXAM: General Impression: Alert and oriented x3, not in acute distress HEENT: Normocephalic atraumatic, extra-ocular movements intact, pupils equal and reactive to light bilaterally, mucous membranes moist. Cardiovascular: Heart regular rate and rhythm Chest: Able to complete full sentences, no retractions, no tachypnea Abdomen: abdomen soft, non-tender, non-distended, no organomegaly Musculoskeletal: Pulses present and equal in all extremities, no peripheral edema, no leg length discrepancy Motor: no focal deficits noted Neurological: CN II-XII grossly intact, no focal motor or sensory deficits noted Skin: Intact with no visualized rashes Psych: Normal affect and mood ED course: 66-year-old female past medical history of lumbar spine surgery presents to the emergency Department with back pain and radiating paresthesias after fall suffered 3 days ago. Vital Signs upon arrival are within acceptable limits. (Chester Osorio) - Related Data Home Medications Medication Instructions Recorded Confirmed Gabapentin [Neurontin] 300 mg PO BID PRN 07/24/17 06/30/20 Multivitamins, Thera [Multivitamin 1 tab PO DAILY 07/24/17 06/30/20 (formulary)] traMADol HCL [Ultram] 50 - 100 mg PO Q4-6H PRN 06/24/20 06/30/20 FLUoxetine HCL [PROzac] 20 mg PO DAILY 06/28/20 06/30/20 Nitrofurantoin Monohyd/M-Cryst 1 tab PO BID 06/30/20 06/30/20 [Macrobid] Previous Rx's Medication Instructions Recorded HYDROcodone/APAP 5-325MG [[place] 5] 1 each PO Q4HR PRN #42 tab 06/30/20 Cyclobenzaprine [Flexeril] 10 mg PO TID PRN #12 tablet 11/29/21 predniSONE [Deltasone] 20 mg PO BID #10 tab 11/29/21 Allergies Allergy/AdvReac Type Severity Reaction Status Date / Time adhesive tape AdvReac red Verified 11/29/21 11:33 irritated skin Review of Systems ROS Other: All systems not noted in ROS Statement are negative. <Chester Osorio - Last Filed: 11/29/21 12:10> ROS Other: All systems not noted in ROS Statement are negative. <Franc Guzmán - Last Filed: 11/29/21 20:52> ROS Statement: Those systems with pertinent positive or pertinent negative responses have been documented in the HPI. Past Medical History Past Medical History: Eye Disorder, GERD/Reflux, Hyperlipidemia, Hypertension Additional Past Medical History / Comment(s): [place] GLAUCOMA History of Any Multi-Drug Resistant Organisms: None Reported Past Surgical History: Hysterectomy Additional Past Surgical History / Comment(s): COLONOSCOPY Past Anesthesia/Blood Transfusion Reactions: No Reported Reaction Past Psychological History: Anxiety, Depression Smoking Status: Never smoker Past Alcohol Use History: None Reported Past Drug Use History: None Reported - Past Family History Mother Family Medical History: Cancer Father Family Medical History: Cancer Brother(s) Family Medical History: Cancer Additional Family Medical History / Comment(s): BROTHER #1-COLON. 2 BROTHERS WITH SKIN CANCER <Chester Osorio - Last Filed: 11/29/21 12:10> General Exam Limitations: no limitations <Chester Osorio - Last Filed: 11/29/21 12:10> General appearance: alert, in no apparent distress Respiratory exam: Present: normal lung sounds bilaterally Cardiovascular Exam: Present: regular rate, normal rhythm Expanded Peripheral pulses: 2+: Posterior Tibialis (R), Posterior Tibialis (L) GI/Abdominal exam: Present: soft. Absent: tenderness Extremities exam: Present: normal inspection Neurological exam: Present: alert. Absent: motor sensory deficit Expanded Sensory exam: Lower Extremity Light Touch: Normal Motor strength exam: RLE: 5, LLE: 5 Psychiatric exam: Present: normal affect, normal mood Skin exam: Present: normal color <Franc Guzmán - Last Filed: 11/29/21 20:52> Course Vital Signs 11/29/21 11:31 Temperature 98.4 F Pulse Rate 64 Respiratory 20 Rate Blood Pressure 163/78 O2 Sat by Pulse 98 Oximetry Medical Decision Making - Radiology Data Radiology results: report reviewed (CT pelvis shows no fracture. Computed tomography scan lumbar spine shows 4 mm anterior listhesis. Also disc bulging L2-L3 with narrowing of the thecal sac) <Franc Guzmán - Last Filed: 11/29/21 20:52> - Medical Decision Making Patient reevaluated twice. Images delayed secondary to computer problems. Patient updated on results and need for follow-up. Patient states fall actually occurred around 10 days ago. No leg weakness. No tendons retention of bowel or bladder. No loss of sensation. (Franc Guzmán) Disposition <Chester Osorio - Last Filed: 11/29/21 12:10> Is patient prescribed a controlled substance at d/c from ED?: No Time of Disposition: 20:52 <Franc Guzmán - Last Filed: 11/29/21 20:52> Clinical Impression: Low back pain Disposition: HOME SELF-CARE Condition: Stable Instructions (If sedation given, give patient instructions): Acute Low Back Pain (ED) Additional Instructions: Prescription sent to pharmacy. Please follow-up with Dr. Anderson in the next day or 2 for recheck. Return for loss of control of bowel or bladder, weakness, worsening or change in symptoms or other concerns. Prescriptions: predniSONE [Deltasone] 20 mg PO BID #10 tab Cyclobenzaprine [Flexeril] 10 mg PO TID PRN #12 tablet PRN Reason: Pain Referrals: Jay Mcfadden MD [Primary Care Provider] - 1-2 days
[2021-11-29] MEDS ORDERED: MORPHINE SULFATE 4 MG/ML SYRINGE IM STA (12:16)
[2021-11-29] MEDS ORDERED: MORPHINE SULFATE 4 MG/ML SYRINGE IV STA (12:16)
--- NOTE | 2021-11-29 20:34 | CT ---
EXAM: CT Pelvis Without Intravenous Contrast CLINICAL HISTORY: ITS.REASON CT Reason: fall TECHNIQUE: Axial computed tomography images of the pelvis without intravenous contrast. CTDI is 13.9 mGy and DLP is 451.1 mGy-cm. This CT exam was performed using one or more of the following dose reduction techniques: automated exposure control, adjustment of the mA and/or kV according to patient size, and/or use of iterative reconstruction technique. COMPARISON: No relevant prior studies available. FINDINGS: Bowel: Unremarkable. No obstruction. No mucosal thickening. Appendix: No findings to suggest acute appendicitis. Intraperitoneal space: The uterus has been removed. No free fluid is seen in the pelvis. No free air. Bladder: Unremarkable. No stones. Reproductive: Unremarkable as visualized. Bones/joints: No acute fracture or dislocation is seen involving the hips or pelvis. Mild to moderate degenerative changes in the lower lumbar spine with partial visualization instrumentation extending down to L5. Soft tissues: Unremarkable. Vasculature: Unremarkable. No lower abdominal aortic aneurysm. Lymph nodes: Unremarkable. No enlarged lymph nodes. IMPRESSION: No acute fracture or dislocation is seen involving the hips or pelvis.
--- NOTE | 2021-11-29 20:43 | CT ---
EXAM: CT Lumbar Spine Without Intravenous Contrast CLINICAL HISTORY: ITS.REASON CT Reason: back pain, fall TECHNIQUE: Axial computed tomography images of the lumbar spine without intravenous contrast. CTDI is 13.9 mGy and DLP is 451.1 mGy-cm. This CT exam was performed using one or more of the following dose reduction techniques: automated exposure control, adjustment of the mA and/or kV according to patient size, and/or use of iterative reconstruction technique. COMPARISON: No relevant prior studies available. FINDINGS: Vertebrae: The lumbar spine vertebral body heights are normally maintained. No acute compression fracture or burst fracture is present. Discs/spinal canal/neural foramina: Surgical changes from previous instrumentation and fusion of L4-5. The hardware is intact. There is a 4 mm anterior listhesis. The level may not be completely fused. L2-3 there is 4-5 mm broad-based posterior disc bulge mildly narrowing the thecal sac to 9 mm. Soft tissues: Unremarkable. Pancreas: There appears to be dilation of the pancreatic duct measuring up to 5 mm in diameter. No calculi or mass lesion is identified. Consider follow-up postcontrast cross-sectional imaging for further characterization if clinically indicated. Kidneys and ureters: There are multiple parapelvic cysts involving both kidneys. No hydroureter or collecting system calculi identified. IMPRESSION: 1. Surgical changes from previous instrumentation and fusion of L4-5. The hardware is intact. There is a 4 mm anterior listhesis. The level may not be completely fused. 2. The lumbar spine vertebral body heights are normally maintained. No acute compression fracture or burst fracture is present. 3. There appears to be dilation of the pancreatic duct measuring up to 5 mm in diameter. No calculi or mass lesion is identified on contrast study. Consider follow-up postcontrast cross-sectional imaging for further characterization if clinically indicated. 4. At L2-3 there is 4-5 mm broad-based posterior disc bulge mildly narrowing the thecal sac to 9 mm.
[2021-11-29] MEDS ORDERED: ACET/COD 300 MG/30 MG STARTER PACK 6 TAB BTL PO STA (21:07)
== END 2021-11-29 21:25 | disposition home or self-care (01) ==
LOC: EC 10:49
DX: M54.50 Low back pain, unspecified (principal); K21.9 Gastro-esophageal reflux disease without esophagitis; E78.5 Hyperlipidemia, unspecified; I10 Essential (primary) hypertension; F41.9 Anxiety disorder, unspecified; F32.A Depression, unspecified; Z88.8 Allergy status to other drugs, medicaments and biological substances; Z79.899 Other long term (current) drug therapy
CPT/HCPCS: 72192; 72131; 99284; 96372; J2270

== ENCOUNTER → 2021-12-07 | Outpatient (CLI) | payer MEDICARE ==
--- NOTE | 2021-12-07 09:26 | MR ---
EXAMINATION TYPE: MR lumbar spine wo con DATE OF EXAM: 12/07/2021 COMPARISON: CT lumbar spine November 29, 2020 HISTORY: Lumbar pain, fall, radiculopathy TECHNIQUE: Multiplanar, multisequence imaging of the lumbar spine is performed without IV contrast. FINDINGS: Sagittal images of the lumbar spine show vertebral body heights to remain satisfactory. Sli ght grade 1 anterolisthesis L4 and L5 with artifact from metallic disc material somewhat more posteri or in position than desired but unchanged from recent CT is noted. Multilevel disc desiccation is pre sent. There is moderate disc space narrowing L2-L3 level redemonstrated. The conus medullaris is nor mal in position and signal ending mid L1 level. The bone marrow signal intensity is within normal li mits above and below surgical levels. Axial images show T12-L1 and L1-L2 levels to appear within normal limits. Axial images at L2-L3 level show mild to moderate disc bulge with left paracentral/foraminal disc pro trusion component effacing the anterior thecal sac and causing mild to moderate left-sided neural for aminal narrowing. Right-sided neural foramen is patent. Axial images at the L3-L4 levels artifact from surgical change. Spinal canal is preserved. Bilateral neural foramina are patent. Axial images at L4-L5 level show abnormal spondylolisthesis and artifact from surgical change. Bilate ral neural foramina felt patent. Spinal canal is preserved. Axial images at L5-S1 level show mild facet arthropathy bilaterally. There is tiny central disc protr usion. There is mild to moderate right-sided neural foraminal narrowing due to right foraminal disc p rotrusion component. Artifact from surgical changes noted. There are central simple parapelvic cysts in both kidneys. IMPRESSION: Postsurgical change L4-L5 level with spondylolisthesis redemonstrated. Some degenerative changes noted at L2-L3 and L5-S1 levels as detailed above
== END | disposition home or self-care (01) ==
LOC: RADMRIMAIN 06:50
PROVIDERS: ATTEND Orthopaedic Surgery Orthopaedic Surgery of the Spine
DX: M43.16 Spondylolisthesis, lumbar region (principal); M47.817 Spondylosis without myelopathy or radiculopathy, lumbosacral region; M51.37 Other intervertebral disc degeneration, lumbosacral region
CPT/HCPCS: 72148

== ENCOUNTER → 2021-12-23 | Outpatient (CLI) | payer MEDICARE ==
--- NOTE | 2021-12-24 08:25 | CT ---
EXAMINATION TYPE: CT abdomen w con CT DLP: 739.2 mGycm, Automated exposure control for dose reduction was used. 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 Sagittal and [facility] Contrast used:100 mL of Isovue 370 with IV Contrast, Oral contrast used: without Oral Contrast FINDINGS: LOWER CHEST: Mild atelectasis changes. ABDOMEN LIVER: Diffusely hypoattenuating parenchyma. GALLBLADDER AND BILE DUCTS: Common bile duct dilation measuring up to 7 mm. PANCREAS: Pancreatic parenchyma is relatively homogenous without evidence of mass. There is dilation of the main pancreatic duct measuring up to 6 mm in the pancreatic head which extends to the pancreat ic tail. SPLEEN: Unremarkable. ADRENAL GLANDS: Unremarkable. KIDNEYS AND URETERS: No evidence of hydronephrosis or renal calculus. Multiple peripelvic renal cysts are seen bilaterally. STOMACH AND BOWEL: No evidence of bowel obstruction. Moderate stool burden throughout the colon PERITONEUM: No evidence of pneumoperitoneum or free fluid. VASCULATURE: No evidence of aortic aneurysm. MUSCULOSKELETAL: No acute osseous abnormalities, fixation hardware in the lower lumbar spine with gra de 1 anterolisthesis of L4 and L5. LYMPH NODES: No gross evidence for lymphadenopathy. SOFT TISSUE/ABDOMINAL WALL: Unremarkable IMPRESSION: 1. 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 Correlate for ampullary stricture. Consider ERCP and short-t erm follow-up in 3-6 months to ensure stability. 2. Hepatic steatosis.
== END | disposition home or self-care (01) ==
LOC: RADCTMAIN 12-22 17:26
PROVIDERS: ATTEND Family Medicine
DX: K86.9 Disease of pancreas, unspecified (principal); K76.0 Fatty (change of) liver, not elsewhere classified
CPT/HCPCS: 82565; 84520; 74160; 36415; Q9967

== ENCOUNTER → 2022-01-20 | Outpatient (CLI) | payer MEDICARE ==
--- NOTE | 2022-01-20 10:11 | CA ---
Transthoracic Echo Report Name: Liberty Dumont Age: 66 Gender: F : 1955 Exam Date: 01/20/2022 08:38 Exam Location: [facility] Ht (in): 63 Wt (lb): 168 Ordering Physician: Jay Mcfadden MD Attending/Referring Phys: [id number], Bogdan Diamond Sizer Katie Foreman, [place] Procedure CPT: Indications: K86.9 disease pancreas unsp, R01.1 cardiac murmur Cardiac Hx: Technical Quality: Fair Contrast 1: Total Dose (mL): Contrast 2: Total Dose (mL): MEASUREMENTS (Male / Female) Normal Values 2D ECHO LV Diastolic Diameter PLAX 3.5 cm 4.2 - 5.9 / 3.9 - 5.3 cm LV Systolic Diameter PLAX 2.2 cm IVS Diastolic Thickness 1.0 cm 0.6 - 1.0 / 0.6 - 0.9 cm LVPW Diastolic Thickness 1.2 cm 0.6 - 1.0 / 0.6 - 0.9 cm LV Relative Wall Thickness 0.6 RV Internal Dim ED PLAX 3.1 cm LA Volume 45.6 cm??? 18 - 58 / 22 - 52 cm??? M-MODE Aortic Root Diameter MM 2.6 cm LA Systolic Diameter MM 3.6 cm LA Ao Ratio MM 1.4 AV Cusp Separation MM 1.6 cm DOPPLER AV Peak Velocity 152.0 cm/s AV Peak Gradient 9.2 mmHg AI Peak Velocity 440.9 cm/s AI Peak Gradient 77.8 mmHg AI Pressure Half Time 512.7 ms LVOT Peak Velocity 123.9 cm/s LVOT Peak Gradient 6.1 mmHg MV Area PHT 3.4 cm??? Mitral E Point Velocity 64.3 cm/s Mitral A Point Velocity 108.1 cm/s Mitral E to A Ratio 0.6 MV Deceleration Time 224.6 ms MV E' Velocity 13.6 cm/s Mitral E to MV E' Ratio 4.7 TR Peak Velocity 139.0 cm/s TR Peak Gradient 7.7 mmHg Right Ventricular Systolic Press 12.7 mmHg FINDINGS Left Ventricle Mildly increased left ventricular wall thickness. Normal left ventricular systolic function with no obvious regional wall motion abnormalities. Left ventricular ejection fraction is estimated at 55-60 %. Right Ventricle Normal right ventricular size and function. Right ventricular systolic pressure within normal limits. Right Atrium Normal right atrial size. Left Atrium Normal left atrial size. Mitral Valve Structurally normal mitral valve. No mitral stenosis, regurgitation or prolapse. Aortic Valve Trileaflet aortic valve. No aortic stenosis. Mild aortic regurgitation. Tricuspid Valve Structurally normal tricuspid valve. Mild tricuspid regurgitation. Pulmonic Valve Trace pulmonic regurgitation. Pericardium No pericardial effusion. Aorta Normal size aortic root and proximal ascending aorta. CONCLUSIONS Normal LV size and systolic function mild LVH Previewed by: Dr. Yoan Cantu MD (Electronically Signed) Final Date: 20 January 2022 10:10
--- NOTE | 2022-01-23 20:24 | MM ---
Reason for Exam: Screening (asymptomatic). Last mammogram was performed 1 year(s) and 9 month(s) ago. Patient History: Menarche at age 12. First Full-Term at age 24. Hysterectomy at age 43. Postmenopausal. Risk Values: Krystal 5 year model risk: 1.6%. NCI Lifetime model risk: 6.2%. Prior Study Comparison: 01/14/2019 Bilateral Screening Mammogram, [facility]. 04/05/2020 Bilateral Screening Mammogram, [facility]. 04/08/2020 Left Diagnostic Mammogram, [facility]. Tissue Density: There are scattered fibroglandular densities. Findings: Analyzed By CAD. Chronic nodularity Central left MLO view. Areas of asymmetric density lateral left CC view are unchanged. No significant change from prior exams. Overall Assessment: Benign, BI-RAD 2 Management: Screening Mammogram of both breasts in 1 year. 1. Patient should continue monthly self breast exams. 2. A clinical breast exam by your physician is recommended on an annual basis. 3. This exam should not preclude additional follow-up of suspicious palpable abnormalities. Electronically signed and approved by: Wong Dawson M.D. Radiologist
== END | disposition home or self-care (01) ==
LOC: RADECHMAIN 08:21
PROVIDERS: ATTEND Family Medicine
DX: Z12.31 Encounter for screening mammogram for malignant neoplasm of breast (principal); I51.7 Cardiomegaly; Z78.0 Asymptomatic menopausal state
CPT/HCPCS: 77063; 77067; 93306

== ENCOUNTER → 2022-01-27 | Outpatient (CLI) | payer MEDICARE ==
--- NOTE | 2022-01-27 10:17 | MR ---
EXAMINATION TYPE: MR MRCP DATE OF EXAM: 01/27/2022 COMPARISON: CT abdomen December 23, [address] study 2019 HISTORY: Disease of the pancreas Standard multiplanar, multisequence MRI departmental protocol Multiplanar, multisequence images of the abdomen were acquired without contrast. Pancreas protocol. T hin and thick slice MRCP imaging performed on MRI scanner. FINDINGS: Pancreas: Pancreas remains normal in size. No concerning solid or cystic mass identified. Pancreatic duct is once again seen and dilated in the proximal to mid body and head. This has similar appearance to CT studies measuring up to 7 mm in diameter. Some tapering towards the duodenal ampulla is redemo nstrated. Adjacent common bile duct minimally dilated at 7 mm with tapering towards the duodenal ampu lla. No intraluminal filling defects or stones. Pancreatic duct is normal in size in the distal body and tail. Duct is overall slightly larger or more prominent from 2019 CT. Other: Prominent central peripelvic cysts in both kidneys redemonstrated. The liver, spleen, and both adrenal glands remain within normal limits. No suspicious small or large bowel dilatation. Postsurgi easton change to the lower lumbar spine is redemonstrated with susceptibility artifact. IMPRESSION: Dilated main pancreatic duct. Normal ductal anatomy. Minimal extrahepatic biliary dilatat ion. Differential includes main branch IPMN has appears more prominent from 2019 CT. At minimum, cont inued imaging surveillance is advised. Consider surgical evaluation. Consider ERCP evaluation.
== END | disposition home or self-care (01) ==
LOC: RADMRIMAIN 07:02
PROVIDERS: ATTEND Internal Medicine Gastroenterology
DX: K86.9 Disease of pancreas, unspecified (principal); K83.8 Other specified diseases of biliary tract
CPT/HCPCS: 74181

== ENCOUNTER → 2023-01-23 | Outpatient (CLI) | payer MEDICARE ==
--- NOTE | 2023-01-23 13:36 | BD ---
EXAMINATION TYPE: Axial Bone Density DATE OF EXAM: 01/23/2023 CLINICAL HISTORY: 67 years old Female. ICD-10 CODE: ,Z78.0 Height: 62 Weight: 177 FRAX RISK QUESTIONS: History of Fracture in Adulthood: yes Secondary Osteoporosis: yes 3. Menopause before 45: yes RISK FACTORS HISTORY OF: hx of right thumb, left ankle and left foot all as an adult.... History of Wrist Fracture: left as an adult and right as a youth Surgery to Spine cage to lower back in 2019 Diet low in dairy products/other sources of calcium: yes Postmenopausal woman: yes, at age 43 partial hyst Hyperparathyroidism: no Adrenal Insufficiency: no MEDICATIONS: Additional Medications: prozac and vitamins for seniors Additional History: depression/anxiety, stage 3 renal disease, EXAM MEASUREMENTS: Bone mineral densitometry was performed using the [employer] System. cage around lower back Bone mineral density about the R hip (g/cm2): 0.726 Bone mineral density about the L hip (g/cm2): 0.802 T Score values are as follows: -----R Neck: -2.2 -----L Neck: -1.8 -----R Total: -2.2 -----L Total: -1.6 Z Score values are as follows: -----R Neck: -0.9 -----L Neck: -0.6 -----R Total: -1.3 -----L Total: -0.7 Bone mineral density has: Decreased -4.1% since study of: 04.05.2020 FRAX%s: The graph provided illustrates a 18.4% chance for a major osteoporotic fx and a 3.2% chance f or the hips probability for fx in 10 years time. IMPRESSION: Osteopenia (T Score between -2.5 and -1). There is slightly increased risk of fracture and the patient may be considered for treatment. Re-Screen 2-5 years. NOTE: T-SCORE=SD OF THE YOUNG ADULT MEAN.
--- NOTE | 2023-01-24 08:43 | MM ---
Reason for Exam: Screening (asymptomatic). Last screening mammogram was performed 12 month(s) ago. Patient History: Menarche at age 12. First Full-Term at age 24. Hysterectomy at age 43. Postmenopausal. Risk Values: Krystal 5 year model risk: 1.6%. NCI Lifetime model risk: 5.9%. Prior Study Comparison: 04/05/2020 Bilateral Screening Mammogram, [facility]. 04/08/2020 Left Diagnostic Mammogram, [facility]. 01/20/2022 Bilateral MG 3D screening mammo w/cad, [facility]. Tissue Density: The breast tissue is heterogeneously dense. This may lower the sensitivity of mammography. Findings: Analyzed By CAD. There is no suspicious group of microcalcifications or new suspicious mass. Benign-appearing calcifications bilaterally. Overall Assessment: Negative, BI-RAD 1 Management: Screening Mammogram of both breasts in [address] [facility] will attempt to contact patient to return for supplemental views and ultrasound if indicated. Patient should continue monthly self-breast exams. A clinical breast exam by your physician is recommended on an annual basis. This exam should not preclude additional follow-up of suspicious palpable abnormalities. Note on Krystal scores and lifetime risk: 1. A Krystal score greater than 3% is considered moderate risk. If this is the case, consider specialist referral to assess eligibility for a risk reducing agent. 2. If overall lifetime risk for the development of breast cancer is 20% or higher, the patient may qualify for future screening with alternating mammogram and breast MRI. Electronically signed and approved by: Greg Garcia DO
== END | disposition home or self-care (01) ==
LOC: RADMAMWWP 06:53
PROVIDERS: ATTEND Family Medicine
DX: Z12.31 Encounter for screening mammogram for malignant neoplasm of breast (principal); M85.89 Other specified disorders of bone density and structure, multiple sites; Z78.0 Asymptomatic menopausal state
CPT/HCPCS: 77063; 77067; 77080

== ENCOUNTER → 2023-03-02 | Outpatient (CLI) | payer MEDICARE ==
--- NOTE | 2023-03-02 13:17 | CT ---
EXAMINATION TYPE: CT wrist RT wo con DATE OF EXAM: 03/02/2023 COMPARISON: None HISTORY: Trauma CT DLP: 140.5 mGycm Automated exposure control for dose reduction was used. FINDINGS: There is a markedly comminuted intra-articular fracture of the distal right radius. There is a small minimally displaced fracture of the ulnar styloid. There is mild widening of the scapholunate articulation suggesting the presence of ligament tear. There is a small erosion fracture from the proximal tip of the hamate. IMPRESSION: MULTIPLE FRACTURES OF THE WRIST AND PROBABLE LIGAMENTOUS INJURY DESCRIBED ABOVE.
== END | disposition home or self-care (01) ==
LOC: RADCTMAIN 12:25
PROVIDERS: ATTEND Orthopaedic Surgery
DX: S52.541A Smith's fracture of right radius, initial encounter for closed fracture (principal)

== ENCOUNTER → 2023-04-25 | Outpatient (CLI) | payer MEDICARE ==
--- NOTE | 2023-04-25 09:54 | CT ---
EXAMINATION TYPE: CT wrist RT wo con CT DLP: 141.9 mGycm, Automated exposure control for dose reduction was used. DATE OF EXAM: 04/25/2023 9:38 AM COMPARISON: CT right wrist 03/02/2023 CLINICAL INDICATION:Female, 68 years old with history of S52.561D AGGARWAL'S FX R RADIUS; PHH, Right wr ist pain. Aggarwal's fracture. TECHNIQUE: Axial images were obtained of the right wrist without the use of IV contrast. Additional coronal and sagittal reformatted images and soft tissue and bone window were obtained for review. 3-D reconstruction was created on a separate workstation. FINDINGS: Postsurgical changes with fixation plate involving the distal radius at site of prior commi nuted fracture. Hardware appears intact with improved alignment. Disuse osteopenia of the wrist demon strated. Ulnar styloid process displaced fracture redemonstrated. No new fractures identified. No dis location. No organized fluid collection. The soft tissues appear unremarkable. IMPRESSION: Postsurgical changes with fixation plate involving the distal radius at site of prior comminuted frac ture. Hardware appears intact with improved alignment. No new fractures.
== END | disposition home or self-care (01) ==
LOC: RADCTMAIN 09:16
PROVIDERS: ATTEND Orthopaedic Surgery Hand Surgery
DX: Z48.89 Encounter for other specified surgical aftercare (principal); S52.561D Barton's fracture of right radius, subsequent encounter for closed fracture with routine healing; G56.01 Carpal tunnel syndrome, right upper limb; Z98.890 Other specified postprocedural states; X58.XXXD Exposure to other specified factors, subsequent encounter

== ENCOUNTER 2023-05-09 13:07 | Day surgery (SDC) | payer MEDICARE ==
[2023-05-04 14:06] VITALS: BMI 31.3
--- NOTE | 2023-05-08 13:33 | P.HPOR ---
History of Present Illness H&P Date: 05/08/23 Subjective: This is a 68 year old female that presents today for initial evaluation regarding a right wrist injury that occurred in early February 2023 around March 02, 2023. Patient sustained a fall onto an outstretched hand and ultimately was found to have a comminuted intra-articular distal radius fracture. She was seen and examined by Dr. Royal at [facility] and ultimately underwent right distal radius fracture open reduction internal fixation with Dr. Royal on March 13, 2023. She was immobilized after surgery and was allowed to start working on finger range of motion. Over the course of the next several weeks after her initial surgery was complete she states she was told by Dr. Royal that she will require secondary wrist reconstructive surgery due to her symptoms and findings on postoperative imaging. She presents today for a second opinion. She has persistent pain at the wrist, mainly located around the ulnar aspect of the wrist and the region around the distal ulna. She is roughly 7 weeks out from surgery. She also has numbness and tingling that is worsening and becoming more constant in the thumb, index and middle fingers. Physical Examination: RUE: AIN/PIN/Radial/Ulnar/Median motor intact. Radial/Ulnar/Median SILT. 2+/4 Radial/Ulnar pulses palpated. 5/5 APB, 5/5 FDI. Positive Durkan's compression. Wrist F/E 25/25. 15 degrees of supination. 15 degrees of pronation with pain. Distal ulna able to be reduced with volar directed pressure but dislocates when pressure is released. DRUJ does not reduce with supination. Imaging: X-Rays of the right wrist 3V taken in office today demonstrate volar plate fixation of comminuted intra-articular distal radius fracture with dorsal DRUJ dislocation. Volar tilt measured at 24 degrees, 7.5 mm of ulnar positivity. Displacement of the volar lunate facet present with incomplete capture of the fragment by the distal ulnar portion of the plate causing volar displacement of the sigmoid notch. Volar plate consistent with [employer] Geminus plate. Plate placement is distal to watershed line of volar rim of distal radius. Initial pre-operative CT scan of the right wrist reviewed from 03/02/23 demostrate a distally located comminuted intra-articular distal radius fracture consistent with comminuted volar Aggarwal fracture, DRUJ reduced on pre-operative imaging. CT scan of the right wrist reviewed from 04/25/23 demonstrates dorsal dislocation of the DRUJ, displacement of the volar lunate facet causing volar translation and rotation of the sigmoid notch with dorsal dislocation of the ulna relative to the radius on axial imaging of the DRUJ. There is volar translation of the carpus in relation to the axis of the radius due to increased volar tilt. Impression: 1.) Right comminuted intra-articular distal radius fracture s/p ORIF with Dr. Royal of [facility] 2.) Right dorsal DRUJ dislocation 3.) Right carpal tunnel syndrome Plan: Diagnosis and treatment options were discussed with the patient. We discussed the complexity of her initial injury due to the comminuted intra-articular nature of her fracture. We also discussed the complexity of the situation since she is now over seven weeks out from her initial surgery. We discussed on imaging she has an incongruent and dorsally dislocated distal radioulnar joint, which is where the majority of her symptoms are today. We discussed this is likely a combination of injury to the DRUJ as well as a pending malunion of the volar lunate facet causing displacement of the sigmoid notch volarly which is likely also contributing to her dorsal DRUJ instability. We also discussed the distal location of the plate may lead to problems in the future including tendon rupture and potential impingement on the lunate. Treatment options were discussed including continued observation as well as several different surgical options. Due to the chronicity of her DRUJ dislocation and the collapse of the fracture site with resulting ulnar positivity we discussed a salvage procedure with distal ulna resection could be performed which I believe will give her the most reliable symptom relief. I also recommend volar plate removal due to the distal location it is currently in and depending on the mobility of the fracture fragments intra-operatively an osteotomy may need to be performed. We discussed if volar opening wedge osteotomy corrects her DRUJ dislocation then she may be able to avoid any salvage procedure with the ulna. She is scheduled for a right wrist removal of hardware with possible revision open reduction internal fixation of her intra-articular distal radius fracture with bone allograft with possible distal ulna resection if the DRUJ in unable to be reduced. She is also scheduled for a right endoscopic vs open carpal tunnel release. Risks and benefits of surgery including bleeding, infection, damage to surrounding tissue, need for further surgery, residual numbness were discussed and the patient wished to go forward with surgery.The patient was agreeable with this plan. CC: Jay Mcfadden MD -Anton Fermin DO Orthopedic Hand/Upper Extremity Surgeon Past Medical History Past Medical History: Eye Disorder, GERD/Reflux, Hyperlipidemia, Hypertension, Osteoarthritis (OA), Renal Disease Additional Past Medical History / Comment(s): [place] GLAUCOMA, Stage 3 Kidney Disease. History of Any Multi-Drug Resistant Organisms: None Reported Past Surgical History: Back Surgery, Hysterectomy Additional Past Surgical History / Comment(s): COLONOSCOPY, right wrist radius - plate placed, laser eye surgery for Glaucoma. Past Anesthesia/Blood Transfusion Reactions: No Reported Reaction Past Psychological History: Anxiety, Depression Smoking Status: Never smoker Past Alcohol Use History: None Reported Past Drug Use History: None Reported - Past Family History Mother Family Medical History: Cancer Father Family Medical History: Cancer Brother(s) Family Medical History: Cancer Additional Family Medical History / Comment(s): 1 BROTHER HAD COLON CANCER. 2 BROTHERS HADSKIN CANCER. Medications and Allergies Home Medications Medication Instructions Recorded Confirmed Type FLUoxetine HCL [PROzac] 20 mg PO QAM 06/28/20 05/04/23 History Acetaminophen [Tylenol Extra 500 - 1,000 mg PO Q4-6H PRN 05/04/23 05/04/23 History Strength] Allergies Allergy/AdvReac Type Severity Reaction Status Date / Time latex Allergy Rash/Hives Verified 05/04/23 13:32 adhesive tape AdvReac red Verified 05/04/23 13:31 irritated skin Physical Examination Osteopathic Statement: *. No significant issues noted on an osteopathic structural exam other than those noted in the History and Physical/Consult.
[~2023-05-09 13:07] MED LIST changes: -DEXAMETHASONE SOD PHOSPHATE 4 MG/ML 1 ML VIAL IV ONE; +HYDROmorphone 0.5 MG/0.5 ML SYRINGE IVP PRN; -LIDOCAINE 1% (10MG/ML) FOR IV START INTRADERMA PRN; -ceFAZolin 1,000 MG in SODIUM CHLORIDE 0.9% IRRIGATIO 1,000 ML IRRIGATION PRN
[2023-05-09] MEDS: LACTATED RINGERS 1,000 ML IV ONE ×2 (13:49→17:05)
[2023-05-09] MEDS: DEXAMETHASONE SOD PHOSPHATE 4 MG/ML 1 ML VIAL IV ONE (13:49)
[2023-05-09] MEDS: ONDANSETRON 4 MG/2 ML VIAL IVP ONE (13:49)
[2023-05-09] MEDS: fentaNYL (PF) 50 MCG/ML 2 ML AMP IVP ONE (13:55)
[2023-05-09] MEDS: MIDAZOLAM 2 MG/2 ML VIAL IVP ONE (13:55)
--- NOTE | 2023-05-09 14:17 | P.ANPRN ---
Procedure Note - Anesthesia - Nerve Block Performed Right Axillary Single Time Out Performed: Yes Date of Procedure: 05/09/23 Procedure Start Time: 13:55 Procedure Stop Time: 14:03 Location of Patient: PreOp Indication: Acute Post-Operative Pain, Requested by Surgeon Sedation Type: Sedate with meaningful contact maintained Preparation: Sterile Prep Position: Supine Needle Types: Pajunk Needle Gauge: 21 Ultrasound used to visualize needle placement: Yes Ultrasound used to observe medication spread: Yes Injectate: 0.5% Ropivacaine (see comment for volume) (30 ml + 4 mg Dexam ethasone) Blood Aspirated: No Pain Paresthesia on Injection Noted: No Resistance on Injection: Normal Image Stored and Saved: Yes Events: Uneventful and Well Tolerated
[2023-05-09] MEDS ORDERED: PROPOFOL 10 MG/ML 20 ML VIAL IV ONE (14:22)
[2023-05-09] MEDS ORDERED: ROPIVACAINE 5 MG/ML 30 ML VIAL ONE (14:22)
[2023-05-09] MEDS ORDERED: ePHEDrine 50 MG/ML 1 ML VIAL ONE (14:22)
[2023-05-09] MEDS ORDERED: LIDOCAINE 1% INJ 10MG/ML (20 ML MDV) ONE (14:22)
[2023-05-09] MEDS ORDERED: fentaNYL (PF) 50 MCG/ML 2 ML AMP ONE (14:22)
[2023-05-09] MEDS ORDERED: DEXAMETHASONE SOD PHOSPHATE 4 MG/ML 1 ML VIAL ONE (14:22)
[2023-05-09 17:45] VITALS: RESP 16; TEMP 98
[2023-05-09 18:13] VITALS: BP 139/70; PULSE 100
--- NOTE | 2023-05-09 21:52 | P.OP ---
Date of Procedure: 05/09/23 Preoperative Diagnosis: 1.) Right intra-articular distal radius fracture pending malunion 2.) Right subacute DRUJ dislocation 3.) Right carpal tunnel syndrome Postoperative Diagnosis: 1.) Right intra-articular distal radius fracture pending malunion 2.) Right subacute DRUJ dislocation 3.) Right carpal tunnel syndrome Procedure(s) Performed: 1.) Right intra-articular distal radius fracture revision open reduction internal fixation, greater than 3 parts ([id number])) 2.) Right wrist removal of deep orthopedic implant (39742) 3.) Right distal ulna resection (66230) 4.) Right extensor carpi ulnaris tendon transfer at level of distal forearm (31 306) 5.) Right endoscopic carpal tunnel release (72357) Implants: Antonia Volar distal radius fragment specific locking hook plate. Anesthesia: regional Surgeon: Anton Fermin President Celebrity Acquistion #1: Milind Medina Estimated Blood Loss (ml): 50 Pathology: none sent Condition: stable Disposition: PACU Description of Procedure: This is a 68year old female who sustained a right displaced intra-articular distal radius fracture that underwent open reduction internal fixation of her distal radius fracture at an outside institution and presented to my office with a dislocated DRUJ and an intra-articular distal radius pending malunion with volar translation of her carpal bones that presented with pain, limited range of motion and deformity and presents today for removal of deep orthopedic implant, revision distal radius fracture ORIF, distal ulna resection and an endoscopic carpal tunnel release for their right distal radius fracture, DRUJ dislocation and worsening carpal tunnel syndrome. Risks and benefits of surgery were discussed with the patient including bleeding, damage to surrounding tissue, infection, need for further surgery as well as risks of anesthesia including pu lmonary embolism and even and the patient wished to proceed with surgical intervention. The patients was seen in the pre-operative area by myself. Consent and H&P were completed and updated. The correct extremity was marked in the pre- operative area by myself and all other questions were answered. Operative Narrative: The patient was brought [facility] the operating [facility] They remained on the portable stretcher and a rolling hand table was brought to the side of the operative extremity. Pre-operative time out was performed indicating the correct patient, procedure and laterality. All in the room agreed. Pre-operative antibiotics were given prior to skin incision. The patient was then drifted off to sleep by the department of anesthesia. A nonsterile tourniquet was then applied to the operative extremity and the right upper extremity was then prepped and draped in normal sterile fashion. The operative extremity was the exsanguinated with an esmarch bandage and the tourniquet was inflated to 250mmHg. Attention was brought towards the carpal tunnel release first. 15 blade scalpel was utilized to make a transverse incision on the palmar skin just ulnar to the palmaris longus tendon at the level of the distal wrist crease. Ragnell retractor was then placed radially and blunt dissection was performed to reveal the distal forearm fascia. This was lifted with fine Franki pick ups and Narciso tenotomy scissors were then used to open the forearm fascia transversely and a double skin hook was then placed. Hamate finder was placed into the carpal tunnel and then sequential sized dilators were inserted followed by the synovial elevator to separate the flexor tenosynovium from the undersurface of the transverse carpal ligament and a washboard texture was felt. The MicroAire endoscopic carpal tunnel release system gun was the then inserted into the carpal tunnel hugging the deep portion of the transverse carpal ligament in line with the base of the ring finger. Transverse fibers of the ligament were directly visualized. Pressure was applied on the palm to reveal the distal extent of the transverse carpal ligament. The blade was then deployed and the distal half of the transverse carpal ligament was released. The scope was then brought distal again and remaining transverse fibers were incised with the blade. The proximal half of the transverse carpal ligament was then divided and again the scope was advanced distal and remaining transverse fibers were incised with the blade. The radial and ulnar leaflets were directly visualized and mobile consistent with complete release. Tenotomy scissors were then utilized to release the remaining distal forearm fascia under direct visualization taking care to preserve the palmar cutaneous branch of the median nerve. A longitudinal incision centered over the FCR tendon was made with a 15-blade scalpel through the previous scar volarly. Blunt dissection was taken down to the FCR tendon sheath using Bovie cautery for meticulous hemostasis. The FCR sheath was opened with tenotomy scissors. The floor of the FCR sheath was then incised with a 15-blade scalpel and the FPL tendon and muscle belly was swept bluntly in an ulnar direction to reveal the the remnants of the pronator quadratus. Pronator quadratus was sharply incised with a 15-blade scalpel along the radial border of the distal radius, coming across transversely parallel to the joint at the level of the watershed line, radial artery was identified and protected. Periosteal elevator was then used to elevate the pronator quadratus off the distal radius from a radial to ulnar fashion to reveal the previously placed volar locking plate. Scalpel and rongeur was used to remove all new early callous and scar tissue that had developed around the plate. The shaft screws were first removed. Attention was drawn to the distal portion of the plate. The comminuted volar lip/rim of the distal radius had jumped the distal edge of the plate and begun to heal overlapping the distal locking screw holes. An osteotome was carefully used to separate the jumped volar lunate facet and volar rim fragments from the plate. The plate was then successfully removed after removing the distal locking pegs. Fibrous tissue and early callous was removed from the distal fracture site and I was able to get mobilization of the comminuted volar rim of the radius as well of the volarly displaced and shortened volar lunate facet fragment. After excision of early callous the articular surface was tamped up with a bone tamp through a window of comminution volarly and a wide nathan retractor was placed in the DRUJ to assist in radial translation/reduction of the displaced volar lunate facet fragment. A wide antonia volar ulnar hook plate was then placed with the tines hooked around the volar rim of the radius. Proximal holes were drilled and filled with cortical screws and locking screws. Mini C- arm was used to confirm adequate placement of the plate and capture of the volar lunate facet fragments with the hooks. A 3-0 Vicryl suture was then placed through the suture holes of the plate and the volar capsular attachments to the small fracture fragments were then secured to the distal portion of the plate aiding in reduction of the small fragments. The wrist was then ranged and the patient now had near full pronation/supination and the carpal bones were stable with flexion/extension. The distal ulna remained in it's dislocated state despite reduction. The DRUJ dislocation was fixed and not able to be manually reduced therefore decision was made to go forward with a distal ulna resection. A longitudinal incision was made over the dorsal ulnar aspect overlying the ulnar head. Blunt dissection was taken down through subcutaneous tissues taking care to provide protection to the dorsal ulnar sensory branch nerves. The ECU tendon sheath was then opened to reveal the distal ulnar head which was dorsally dislocated and very soft and void of soft tissue. Nathan retractors were placed both ulnarly and radially and a microsaggital saw was used to resect the distal 2cm's of the ulnar head which was then excised. A touch up dorsal oblique cut was made to the dorsal ulna to avoid dorsal prominence. Attention was then drawn to the ECU tendon. A distally based strip of the ECU tendon was made with a 15 blade scalpel approximately 5cm in length. A 2.7mm drill bit was then used to make a tunnel through the medullary canal and out the radial portion of the ulnar stump. The distally based ECU tendon strip was then transferred and tunneled through the drill hole and then shuttled back distally and sutured to itself with 3-0 monocryl suture to stabilize the distal ulna to prevent radial translation/impingement. The wound was then irrigated thoroughly and the periosteal sleeve over the ulna was closed with monocryl suture. Subcutaneous closure was performed with 3-0 monocryl followed by skin closure with 4-0 monocryl suture on the volar incisions. Sterile dressing consisting of adaptic, 4x4s, and a volar plaster splint was applied. Tourniquet was let down and the hand had immediate perfusion. The patient was then woken by the department of anesthesia and transferred to PACU in stable condition. Milind GROVER was present for the case and assisted in major portions of the operation and hardware placement. Modifier 22 is being requested to apply to the distal radius portion of the procedure due to the increased complexity of the case with the patient already having had previous fixation of the fracture as well as the added difficulty that was present due to the patient being over 7 weeks out from her index procedure and the altered anatomy and fracture patterns that were addressed due to prior surgical intervention. Anton Fermin DO Orthopedic Hand/Upper Extremity Surgeon
== END 2023-05-09 18:32 | disposition home or self-care (01) ==
LOC: OR 13:07
PROVIDERS: ATTEND Orthopaedic Surgery Hand Surgery
DX: S52.571A Other intraarticular fracture of lower end of right radius, initial encounter for closed fracture (principal); S63.014A Dislocation of distal radioulnar joint of right wrist, initial encounter; G56.01 Carpal tunnel syndrome, right upper limb; G89.28 Other chronic postprocedural pain; K21.9 Gastro-esophageal reflux disease without esophagitis; E78.5 Hyperlipidemia, unspecified; I10 Essential (primary) hypertension; M19.90 Unspecified osteoarthritis, unspecified site; N28.9 Disorder of kidney and ureter, unspecified; H57.9 Unspecified disorder of eye and adnexa; F41.9 Anxiety disorder, unspecified; F32.A Depression, unspecified; H40.20X0 Unspecified primary angle-closure glaucoma, stage unspecified; Z90.710 Acquired absence of both cervix and uterus; Z98.890 Other specified postprocedural states; Z80.0 Family history of malignant neoplasm of digestive organs; Z79.899 Other long term (current) drug therapy; Z91.040 Latex allergy status; Z91.048 Other nonmedicinal substance allergy status; X58.XXXA Exposure to other specified factors, initial encounter
CPT/HCPCS: 25609; 20680; 25240; 25310; 29848; 64417; 64415; C1713; J2250; J1100; J0690; J2405; J2001; J3010; J2795; J2704

== ENCOUNTER → 2023-12-26 | Outpatient (CLI) | payer MEDICARE ==
--- NOTE | 2023-12-26 15:54 | US ---
EXAMINATION TYPE: US carotid duplex BILAT DATE OF EXAM: 12/26/2023 COMPARISON: NONE CLINICAL INDICATION: Female, 68 years old with history of R55 SYNCOPE; Patient states she keeps falli ng. No HTN. No TIA. TECHNIQUE: Grayscale, color Doppler and spectral Doppler evaluation of the bilateral carotid systems and vertebral arteries.Indirect Doppler criteria was utilized. FINDINGS: EXAM MEASUREMENTS: RIGHT: Peak Systolic Velocity (PSV) cm/sec ----- Right CCA: 76.4 ----- Right ICA: 85.3 ----- Right ECA: 98.2 ICA/CCA ratio: 1.1 RIGHT: End Diastole cm/sec ----- Right CCA: 23.2 ----- Right ICA: 30.9 ----- Right ECA: 18.0 LEFT: Peak Systolic Velocity (PSV) cm/sec ----- Left CCA: 89.7 ----- Left ICA: 91.9 ----- Left ECA: 70.3 ICA/CCA ratio: 1.0 LEFT: End Diastole cm/sec ----- Left CCA: 23.7 ----- Left ICA: 38.0 ----- Left ECA: 12.7 VERTEBRALS (direction of flow): Right Vertebral: Antegrade Left Vertebral: Antegrade Rhythm: Normal MECHANICAL SYSTEMS DESIGNER NOTES: No wall thickening or elevated velocities. IMPRESSION: Less than 50% stenosis of the bilateral carotid bifurcations. Criteria for Assigning % of Stenosis / Diameter reduction (Estimation based on the indirect measurements of the internal carotid artery velocities (ICA PSV). 1. Normal (no stenosis)=ICA PSV < 125 cm/s: ratio < 2.0: ICA EDV<40 cm/s. 2. Less than 50% stenosis=ICA PSV < 125 cm/s: ratio < 2.0: ICA EDV<40 cm/s. 3. 50 to 69% stenosis=ICA PSV of 125 to 230 cm/s: ration 2.0 ? 4.0: ICA EDV 40-100 cm/s. 4. Greater than 70% stenosis to near occlusion= ICA PSV > 230 cm/s: ratio > 4.0: ICA EDV > 100 cm/s. 5. Near occlusion= ICA PSV velocities may be low or undetectable: variable ratio and ICA EDV. 6. Total occlusion=unable to detect flow. [facility], , 12/26/2023 3:51 PM
== END | disposition home or self-care (01) ==
LOC: RADUSWWP 15:13
PROVIDERS: ATTEND Family Medicine
DX: I65.23 Occlusion and stenosis of bilateral carotid arteries (principal)
CPT/HCPCS: 93880

== ENCOUNTER → 2024-01-22 | Outpatient (CLI) | payer MEDICARE ==
--- NOTE | 2024-02-22 20:26 | EM ---
EVENT MONITOR The patient was monitored between the 21 of January to January. CLINICAL INFORMATION: The baseline rhythm is sinus mechanism. The average rate 72 beats per minute, minimum 50, maximum 150 beats per minute. Ventricular ectopic activity was not noted. Supraventricular ectopic burden was 2%. Symptoms of lightheadedness, shortness of breath, dizziness, chest pain correlated with sinus mechanism and episode of sinus tachycardia. No pauses were noted. No atrial fibrillation was noted. MMODL / IJN: [id number] /
== END | disposition home or self-care (01) ==
LOC: RADECHMAIN 12:55
PROVIDERS: ATTEND Family Medicine
DX: I47.10 Supraventricular tachycardia, unspecified (principal); R55 Syncope and collapse; R00.2 Palpitations; R07.9 Chest pain, unspecified
CPT/HCPCS: 93270

== ENCOUNTER → 2024-02-26 | Outpatient (CLI) | payer MEDICARE ==
--- NOTE | 2024-02-27 17:02 | MM ---
Reason for Exam: Screening (asymptomatic). Last mammogram was performed 1 year(s) and 2 month(s) ago. Patient History: Menarche at age 12. First Full-Term at age 24. Hysterectomy at age 43. Postmenopausal. Risk Values: Krystal 5 year model risk: 1.7%. NCI Lifetime model risk: 5.7%. Prior Study Comparison: 04/08/2020 Left Diagnostic Mammogram, [facility]. 01/20/2022 Bilateral MG 3D screening mammo w/cad, [facility]. 01/23/2023 Bilateral MG 3D screening mammo w/cad, [facility]. Tissue Density: The breasts are heterogeneously dense, which may obscure small masses. Findings: Analyzed By CAD. There is no suspicious group of microcalcifications or new suspicious mass in either breast. Overall Assessment: Negative, BI-RAD 1 Management: Screening Mammogram of both breasts in 1 year. . Patient should continue monthly self-breast exams. A clinical breast exam by your physician is recommended on an annual basis. This exam should not preclude additional follow-up of suspicious palpable abnormalities. Note on Krystal scores and lifetime risk: 1. A Krystal score greater than 3% is considered moderate risk. If this is the case, consider specialist referral to assess eligibility for a risk reducing agent. 2. If overall lifetime risk for the development of breast cancer is 20% or higher, the patient may qualify for future screening with alternating mammogram and breast MRI. [facility], , 02/27/2024 4:58 PM. Electronically signed and approved by: Wong Dawson M.D. Radiologist
== END | disposition home or self-care (01) ==
LOC: RADMAMWWP 07:59
PROVIDERS: ATTEND Family Medicine
DX: Z12.31 Encounter for screening mammogram for malignant neoplasm of breast (principal); Z78.0 Asymptomatic menopausal state; R92.333 Mammographic heterogeneous density, bilateral breasts
CPT/HCPCS: 77063; 77067

== ENCOUNTER 2024-04-28 07:42 | Emergency (ER) | payer MEDICARE ==
[2024-04-28 07:55] VITALS: RESP 18; TEMP 98.2
--- NOTE | 2024-04-28 08:27 | ED ---
Eye Problem HPI - General Chief complaint: Eye Problems Stated complaint: L eye pain Time Seen by Provider: 04/28/24 08:00 Source: patient, RN notes reviewed Mode of arrival: ambulatory Limitations: no limitations - History of Present Illness Initial comments: 69-year-old female presents emergency department with complaint of left eye pain. Patient states she started having acute pain overnight. Patient states that she had cataract surgery by Dr. Che in November. She has been having issues with this. Patient states that symptoms worsened this morning and presented here. She states she been going every couple weeks to the office for rechecks you are concerned about infections, possible retinal issues. Patient states she has no significant change in vision states it is painful. - Related Data Home Medications Medication Instructions Recorded Confirmed FLUoxetine HCL [PROzac] 20 mg PO QAM 06/28/20 03/21/24 Allergies Allergy/AdvReac Type Severity Reaction Status Date / Time latex Allergy Rash/Hives Verified 04/28/24 07:54 adhesive tape AdvReac red Verified 04/28/24 07:54 irritated skin Review of Systems ROS Statement: Those systems with pertinent positive or pertinent negative responses have been documented in the HPI. ROS Other: All systems not noted in ROS Statement are negative. Past Medical History Past Medical History: Eye Disorder, GERD/Reflux, Hyperlipidemia, Hypertension, Osteoarthritis (OA), Renal Disease Additional Past Medical History / Comment(s): NARROW ANGLE GLAUCOMA, Stage 3 Kidney Disease. History of Any Multi-Drug Resistant Organisms: None Reported Past Surgical History: Back Surgery, Hysterectomy Additional Past Surgical History / Comment(s): COLONOSCOPY, right wrist radius - plate placed, laser eye surgery for Glaucoma. Past Anesthesia/Blood Transfusion Reactions: No Reported Reaction Past Psychological History: Anxiety, Depression Smoking Status: Never smoker Past Alcohol Use History: None Reported Past Drug Use History: None Reported - Past Family History Mother Family Medical History: Cancer Father Family Medical History: Cancer Brother(s) Family Medical History: Cancer General Exam Limitations: no limitations General appearance: alert, in no apparent distress Head exam: Present: atraumatic, normocephalic, normal inspection Eye exam: Present: PERRL, EOMI, conjunctival injection (Left), other (Pressure left eye 15 , 20/40). Absent: normal appearance, scleral icterus, periorbital swelling ENT exam: Present: normal exam, normal oropharynx, mucous membranes moist Neck exam: Present: normal inspection, full ROM. Absent: tenderness, meningismus, lymphadenopathy Respiratory exam: Present: normal lung sounds bilaterally. Absent: respiratory distress, wheezes, rales, rhonchi, stridor Cardiovascular Exam: Present: regular rate, normal rhythm, normal heart sounds. Absent: systolic murmur, diastolic murmur, rubs, gallop, clicks Course Vital Signs 04/28/24 04/28/24 07:50 09:34 Temperature 98.2 F 98.2 F Pulse Rate 72 70 Respiratory 18 18 Rate Blood Pressure 144/73 144/70 O2 Sat by Pulse 98 98 Oximetry Medical Decision Making - Medical Decision Making Was pt. sent in by a medical professional or institution (LENORE Pavon, MELANGEUR OPERATOR, urgent care, hospital, or assisted...) When possible be specific @ -No Did you speak to anyone other than the patient for history (EMS, parent, family, police, friend...)? What history was obtained from this source @ -No Did you review nursing and triage notes (agree or disagree)? Why? @ -I reviewed and agree with nursing and triage notes Were old charts reviewed (outside hosp., previous admission, EMS record, old EKG, old radiological studies, urgent care reports/EKG's, assisted records)? Report findings @ -No old charts were reviewed Differential Diagnosis (chest pain, altered mental status, abdominal pain women, abdominal pain men, vaginal bleeding, weakness, fever, dyspnea, syncope, headache, dizziness, GI bleed, back pain, seizure, CVA, palpatations, mental health, musculoskeletal)? @ -Eyes, retinal tear, glaucoma, cataract surgery complication EKG interpreted by me (3pts min.). @ -None X-rays interpreted by me (1pt min.). @ -None done CT interpreted by me (1pt min.). @ -None done U/S interpreted by me (1pt. min.). @ -None done What testing was considered but not performed or refused? (CT, X-rays, U/S, labs)? Why? @ -None What meds were considered but not given or refused? Why? @ -None Did you discuss the management of the patient with other professionals (professionals i.e. LENORE Pavon, MELANGEUR OPERATOR, lab, RT, psych nurse, family welfare social work professor, embedded linux developer, teacher, human resources officer, case mgr)? Give summary @ -Discussed case with Dr. Renee patient's batch mixer operator who recommends patient present office Was smoking cessation discussed for >3mins.? @ -No Was critical care preformed (if so, how long)? @ -No Were there social determinants of health that impacted care today? How? (Homelessness, low income, unemployed, alcoholism, drug addiction, transportation, low edu. Level, literacy, decrease access to med. care, snf, rehab)? @ -No Was there de-escalation of care discussed even if they declined (Discuss DNR or withdrawal of care, Hospice)? DNR status @ -No What co-morbidities impacted this encounter? (DM, HTN, Smoking, COPD, CAD, Cancer, CVA, ARF, Chemo, Hep., AIDS, mental health diagnosis, sleep apnea, morbid obesity)? @ -None Was patient admitted / discharged? Hospital course, mention meds given and route, prescriptions, significant lab abnormalities, going to OR and other pertinent info. @ -Discharge patient sent over to the batch mixer operator office now for evaluation Undiagnosed new problem with uncertain prognosis? @ -No Drug Therapy requiring intensive monitoring for toxicity (Heparin, Nitro, Insulin, Cardizem)? @ -No Were any procedures done? @ -No Diagnosis/symptom? @ -Left eye pain Acute, or Chronic, or Acute on Chronic? @ -Acute Uncomplicated (without systemic symptoms) or Complicated (systemic symptoms)? @ -Uncomplicated Side effects of treatment? @ -No Exacerbation, Progression, or Severe Exacerbation? @ -No Poses a threat to life or bodily function? How? (Chest pain, USA, MT, pneumonia, PE, COPD, DKA, ARF, appy, cholecystitis, CVA, Diverticulitis, Homicidal, Suicidal, threat to staff... and all critical care pts) @ -No Disposition Clinical Impression: Left eye pain Disposition: HOME SELF-CARE Condition: Stable Additional Instructions: Go directly to Dr. Che office. Please return to the Emergency Department if symptoms worsen or any other concerns. Is patient prescribed a controlled substance at d/c from ED?: No Referrals: Jay Mcfadden MD [Primary Care Provider] - 1-2 days Time of Disposition: 09:26
[2024-04-28 09:37] VITALS: BP 144/70; PULSE 70
== END 2024-04-28 09:40 | disposition home or self-care (01) ==
LOC: EC 07:42
DX: H57.12 Ocular pain, left eye (principal); Z91.040 Latex allergy status; Z91.09 Other allergy status, other than to drugs and biological substances
CPT/HCPCS: 99283

== ENCOUNTER → 2024-06-02 | Outpatient (CLI) | payer MEDICARE ==
[2024-06-02 15:37] LABS: Rheumatoid Factor, Qnt 15 IU/mL (0-15)
[2024-06-03 06:34] LABS: Toxoplasma Antibody (IgG) 16.6 IU/mL (<7.2)
[2024-06-03 09:24] LABS: HLA B27 NEGATIVE
[2024-06-03 10:05] LABS: Angiotensin-1 Converting Enz. 17 U/L (8-52)
[2024-06-03 15:01] LABS: C-ANCA <1:20 Titer (<1:20)
[2024-06-05 20:27] LABS: Lysozyme, Serum or Body Fluid 8.2 mcg/mL (5.0-11.0)
[2024-06-06 14:08] LABS: ANA Pattern Speckled
== END | disposition home or self-care (01) ==
LOC: LABWHC1 09:44
PROVIDERS: ATTEND Optometrist
DX: H20.022 Recurrent acute iridocyclitis, left eye (principal); H04.123 Dry eye syndrome of bilateral lacrimal glands
CPT/HCPCS: 36415; 82164; 85549; 85652; 86038; 86039; 86140; 86255; 86431; 86618; 86777; 86812